=== PATIENT | male | born 1990 | race Caucasian/White ===

== ENCOUNTER 2018-03-25 22:51 | Inpatient (IN) ==
[2018-03-25 23:29] LABS: Basophils # (auto) 0.01 K/uL (0-0.2); Basophils % (auto) 0.1 %; Eosinophils # (auto) 0.02 K/uL (0-0.5); Eosinophils % (auto) 0.2 %; Hematocrit (blood only) 44.5 % (42-52); Hemoglobin 14.9 g/dL (14.0-18.0); Immature Granulocytes # (auto) 0.04 K/uL (0.00-0.02); Immature Granulocytes % (auto) 0.3 %; Lymphocytes # (auto) 3.61 K/uL (1.2-3.4); Lymphocytes % (auto) 27.7 %; Mean Corpuscular Hgb Conc 33.5 g/dL (32-36); Mean Corpuscular Volume 84.1 fL (80-100); Mean Platelet Volume 11.7 fL (7.4-10.4); Monocytes # (auto) 0.82 K/uL (0.11-0.59); Monocytes % (auto) 6.3 %; Neutrophils # (auto) 8.52 K/uL (1.4-6.5); Neutrophils % (auto) 65.4 %; Platelet Count 245 K/uL (130-400); RDW Coefficient of Variation 13.5 % (11.5-14.5); RDW Standard Deviation 41.1 fL (36.4-46.3); Red Blood Count 5.29 M/uL (4.7-6.1); White Blood Count 13.02 K/uL (4.8-10.8)
[2018-03-25 23:51] LABS: Albumin Level 4.4 gm/dl (3.4-5.0); BUN Creatinine Ratio 20.1 (10-20); Calcium 9.3 mg/dl (8.5-10.1); Creatinine Clr Calc Pharmacy 143.3 ml/min; Est GFR (African American) 110.9; Est GFR (Non-African American) 95.7; Potassium 3.6 mmol/L (3.5-5.1)
[2018-03-25 23:54] LABS: Albumin Globulin Ratio 1.4 (0.9-2); Bilirubin,Total 0.4 mg/dl (0.2-1); Globulin 3.2 gm/dl (2.5-4.0); Total Protein 7.6 gm/dl (6.4-8.2)
[2018-03-26 00:17] LABS: Appearance Urine Clear (Clear); Bilirubin Urine Negative (Negative); Color Urine Yellow; Glucose Urine UA Negative (Negative); Ketones Urine Trace (Negative); Leukocyte Esterase Urine Negative (Negative); Nitrite Urine Negative (Negative); Protein Urine Negative (Negative); Specific Gravity Urine 1.028 (1.000-1.030); Urobilinogen Urine Negative (Negative); pH Urine 5.5 (4.5-7.5)
--- NOTE | 2018-03-26 00:43 | Emergency Department Note ---
History of Present Illness General Chief complaint: Back Injury/Pain Stated complaint: back pain, L LEG NUMBNESS Source: patient Mode of arrival: ambulatory Limitations: no limitations History of Present Illness Maximum Pain Intensity: 5 This patient is a 27-year-old male who presents to the emergency department complaining of back pain and left leg pain. The patient reports his pain is been worsening over the past 3-4 weeks. He reports pain in the left lower back which radiates down into the left leg and foot. He reports numbness in the foot and inability to lift his foot. He states his foot has been dragging when he walks and he has to focus on lifting it up in order to walk. He has an appointment with Dr. Durbin in 3 weeks. He has a history of surgery in 2012 for a herniated disc. He saw his primary care provider 3 days ago and was started on a prednisone taper. He denies any injury and states that he woke up with the pain 3-4 weeks ago. He does report he has had some dribbling/ incontinence which started before his back pain. He rates his overall discomfort a 5/10. He states nothing has made his pain better or worse. Home Medications Home Medications Medication Instructions Recorded Confirmed Type dexamethasone 4 mg PO UD 03/25/18 03/25/18 History ibuprofen 400 mg PO QID PRN 03/25/18 03/25/18 History Allergies Allergy/AdvReac Type Severity Reaction Status Date / Time Sulfa (Sulfonamide Allergy Rash Verified 03/25/18 23:52 Antibiotics) Past Med/Surg History Surgical History No significant past medical history back surgery 08/2012 Social History Current Living Situation: Significant Other Other Information That Helps Us Care for You: No Feels Safe at Home: Yes Safety Concerns: Feels Safe At This Time Smoking Status: Never smoker Do You Dip or Chew Tobacco: Yes Second Hand Exposure: No Tobacco Cessation Education Requested by Patient: No Hx Alcohol Use: No Hx Substance Use: No Beliefs That Will Affect Care: None Preferred Language: Burmese Communication Ability: Effective Claim Adjuster Required: No Review of Systems A total of 10 systems reviewed and were otherwise negative Physical Exam Vital Signs Vital Signs - 24 hr 03/25/18 22:54 03/26/18 00:09 03/26/18 02:51 Temperature 36.7 C Temperature Source Oral Sepsis Recent Fever Within 48 Hours No Sepsis New/Unexplained Change in Mental Status No Sepsis Action Taken by Nursing No Action Required Pulse Rate 79 67 Pulse Rate [Finger] 84 Pulse Rhythm Regular Pulse Rhythm [Finger] Pulse Strength Normal Pulse Strength [Finger] Respiratory Rate 18 18 16 Respiratory Effort / Characteristics Non-Labored Spontaneous Non-Labored Spontaneous Respiratory Depth Normal Normal Respiratory Pattern Regular Blood Pressure 156/99 H 145/85 H Blood Pressure [Right Arm] 149/86 H Blood Pressure Mean 118 Blood Pressure Mean [Right Arm] 107 Blood Pressure Position Sitting Blood Pressure Position [Right Arm] Pulse Oximetry 99 100 97 Oxygen Delivery Method Room Air Room Air Room Air 03/26/18 03:05 Temperature 36.5 C Temperature Source Oral Sepsis Recent Fever Within 48 Hours Sepsis New/Unexplained Change in Mental Status Sepsis Action Taken by Nursing Pulse Rate Pulse Rate [Finger] 59 L Pulse Rhythm Pulse Rhythm [Finger] Regular Pulse Strength Pulse Strength [Finger] Normal Respiratory Rate 16 Respiratory Effort / Characteristics Non-Labored Spontaneous Respiratory Depth Normal Respiratory Pattern Regular Blood Pressure Blood Pressure [Right Arm] 144/82 H Blood Pressure Mean Blood Pressure Mean [Right Arm] 102 Blood Pressure Position Blood Pressure Position [Right Arm] Sitting Pulse Oximetry 95 Oxygen Delivery Method Room Air VITALS: Vitals are noted on the nurse's note and reviewed by myself. Vital signs stable. GENERAL: This is a 27-year-old male, in no acute distress, nondiaphoretic, well- developed well-nourished. SKIN: The skin was without rashes. HEAD: Normocephalic atraumatic. MOUTH: Mucous membranes moist. NECK: Supple without nuchal rigidity. HEART: Regular rate and rhythm without murmurs gallops or rubs. LUNGS: Clear to auscultation bilaterally without wheezes, rales or rhonchi. ABDOMEN: Positive bowel sounds x 4. Soft, nontender to palpation. No guarding or rebound tenderness. MUSCULOSKELETAL: There is no tenderness of the lumbar spine or paraspinous muscles. Decreased strength to dorsiflexion of the left foot. Otherwise 5/5 strength in bilateral lower extremities. Patellar reflex slightly decreased in the left lower extremity compared to the right. Negative straight leg raise bilaterally. NEURO: Patient was alert and oriented to person place and time. Distal sensation is intact over bilateral lower extremities. Course Reevaluation(s) Reevaluation #1: The patient was reevaluated and findings and plan were discussed. The patient is agreeable to admission/observation. Consultations Consultation #1: Kim Sohail - [facility] I spoke with Kim Sauceda PA-C with [facility]. Unfortunately, Dr. Durbin is out of town this weekend and will not be able to consult on the patient. She recommended calling Dr. Sherman from [facility] orthopedics. Consultation #2: Dr. Sherman - Ortho spine I spoke with Dr. Sherman regarding the patient. He does feel that the patient will need admission and will evaluate him in the morning. He recommended admitting the patient to the hospitalist service. Consultation #3: Dr. Merry Baca [facility] hospitalist Administered Medications Hydromorphone HCl (Dilaudid) 0.5 mg IV Q3H PRN PRN Reason: Pain Stop: 04/09/18 03:19 Last Admin: 03/26/18 05:35 Dose: 0.5 mg Sodium Chloride (Nss 1000ml) 1,000 mls @ 125 mls/hr IV .Q8H LENIN Stop: 04/25/18 03:19 Last Infusion: 03/26/18 06:15 Dose: 125 mls/hr Admin: 03/26/18 03:56 Dose: 125 mls/hr Dexamethasone Sodium Phosphate (8 mg/ Syringe) 2 mls @ 1 mls/min IV Q6 LENIN Stop: 04/25/18 05:59 Last Admin: 03/26/18 05:35 Dose: 1 mls/min Discontinued Medications Dexamethasone (Decadron) 8 mg IV NOW STA Stop: 03/26/18 01:38 Last Admin: 03/26/18 01:43 Dose: 8 mg Morphine Sulfate (Morphine Sulfate) 4 mg IV NOW STA Stop: 03/26/18 01:38 Last Admin: 03/26/18 01:44 Dose: 4 mg Ondansetron HCl (Zofran) 4 mg IV NOW STA Stop: 03/26/18 01:38 Last Admin: 03/26/18 01:43 Dose: 4 mg Medical Decision Making Differential Diagnosis Differential diagnosis includes cauda equina syndrome, cord compression, disc herniation, muscle spasm, lumbar strain, epidural abscess, malignancy, transverse myelitis, urinary tract infection, colitis, diverticulitis, kidney stone, among others. Medical Records Attestation: I reviewed the patient's medical records. Home Medications Current Medication List: was personally reviewed by me Laboratory Data Attestation: I reviewed the patient's lab results. Result diagrams: 03/25/18 23:20 03/25/18 23:20 Lab Results 03/25/18 03/25/18 03/26/18 Range/Units 23:20 23:20 00:05 WBC 13.02 H (4.8-10.8) K/uL RBC 5.29 (4.7-6.1) M/uL Hgb 14.9 (14.0-18.0) g/dL Hct 44.5 (42-52) % MCV 84.1 (80-100) fL MCH 28.2 (25-34) pg MCHC 33.5 (32-36) g/dL RDW Std Deviation 41.1 (36.4-46.3) fL RDW Coeff of Kelsey 13.5 (11.5-14.5) % Plt Count 245 (130-400) K/uL MPV 11.7 H (7.4-10.4) fL Immature Gran % (Auto) 0.3 % Neut % (Auto) 65.4 % Lymph % (Auto) 27.7 % Spencer % (Auto) 6.3 % Eos % (Auto) 0.2 % Baso % (Auto) 0.1 % Immature Gran # (Auto) 0.04 H (0.00-0.02) K/uL Neut # (Auto) 8.52 H (1.4-6.5) K/uL Lymph # (Auto) 3.61 H (1.2-3.4) K/uL Spencer # (Auto) 0.82 H (0.11-0.59) K/uL Eos # (Auto) 0.02 (0-0.5) K/uL Baso # (Auto) 0.01 (0-0.2) K/uL Sodium 139 (136-145) mmol/L Potassium 3.6 (3.5-5.1) mmol/L Chloride 105 (98-107) mmol/L Carbon Dioxide 26 (21-32) mmol/L Anion Gap 8.0 (3-11) BUN 21 H (7-18) mg/dl Creatinine 1.06 (0.6-1.4) mg/dl Est Cr Clr Drug Dosing 143.3 ml/min Est GFR ( Amer) 110.9 Est GFR (Non-Af Amer) 95.7 BUN/Creatinine Ratio 20.1 H (10-20) Glucose 105 H (70-99) mg/dl Calcium 9.3 (8.5-10.1) mg/dl Total Bilirubin 0.4 (0.2-1) mg/dl AST 20 (15-37) U/L ALT 54 (12-78) U/L Alkaline Phosphatase 90 (45-117) U/L Total Protein 7.6 (6.4-8.2) gm/dl Albumin 4.4 (3.4-5.0) gm/dl Globulin 3.2 (2.5-4.0) gm/dl Albumin/Globulin Ratio 1.4 (0.9-2) Urine Color Yellow Urine Appearance Clear (Clear) Urine pH 5.5 (4.5-7.5) Ur Specific [place] 1.028 (1.000-1.030) Urine Protein Negative (Negative) Urine Glucose (UA) Negative (Negative) Urine Ketones Trace H (Negative) Urine Blood Negative (Negative) Urine Nitrite Negative (Negative) Urine Bilirubin Negative (Negative) Urine Urobilinogen Negative (Negative) Ur Leukocyte Esterase Negative (Negative) Imaging Data Attestation: I personally reviewed and interpreted this imaging study as follows : Radiologist's Impression: MRI L SPINE : History: None Findings: There is lumbar disc disease with broad-based disc bulge at L1-2 no evidence for significant canal effacement with no evidence of neuroforaminal effacement Broad-based disc bulge at L2-3 with a right foraminal zone disc protrusion causing effacement of the lateral recess on the right with mild canal effacement potential for impingement of the descending L3 nerve root cannot be excluded. There is central disc herniation at L3-4 with extrusion of disc material over the superior endplate of L4. This causes effacement of the thecal sac with the canal diameter reduced to 7 mm. Mild bilateral lateral recess effacement At L4-L5 there is broad-based disc bulge with minimal canal effacement no significant neural foraminal effacement Disc herniation at L5-S1 with extrusion of disc material posterior to the L5 vertebral body this is predominantly intra-articular and intraforaminal with severe effacement of the right lateral recess with possible impingement on the descending S1 nerve root on the right Impression: significant degenerative disc disease throughout the lumbar spine with disc herniation at L5-S1 L3-4 and L2-3. Likely impinge on descending nerve roots at L2-3 on the right and at L5-S1 on the right with canal effacement proximal 7 mm residual canal diameter at L3-4: Radiologist: Joe Cordero MD Blood Pressure Blood Pressure Findings: Elevated blood pressure Blood Pressure Disposition: further management by hospitalist MDM Narrative The patient is a 27-year-old male who presents today complaining of back pain, foot drop and urinary incontinence. Labs revealed a mild leukocytosis, likely secondary to recent steroid use. Urinalysis was not suggestive of infection. MRI was performed and does show significant disc bulge consistent with patient' s symptoms. Given his physical exam findings, I am concerned that the patient may need surgical intervention. Orthopedic spine was consulted and recommended admitting the patient for consultation in the morning. [facility]. He did receive an initial dose of 8 mg Decadron IV at the recommendation of orthopedics. He also did receive a small dose of morphine for pain. Impression & Plan Lumbar disc herniation Discharge Plan Visit Data *Final* Discharge Date/Time: 03/26/18 02:51 Chief Complaint: Back Injury/Pain Stated Complaint: back pain, L LEG NUMBNESS ED Provider: Julio Taylor ED Midlevel Provider: Vernell Lorenzo Discharge Problem: Lumbar disc herniation Patient Disposition: Admitted As Inpatient Condition: Good Discharge Instructions Interventions: ED Discharge Assessment Last Done: 03/26/18 02:51
[2018-03-26] MEDS ORDERED: DEXAMETHASONE SOD INJ 4 MG/ML VIAL IV STA (01:37)
[2018-03-26] MEDS ORDERED: MoRPHine SULFATE 4 MG/ML 1 ML CARP\\VIAL IV STA (01:37)
[2018-03-26] MEDS ORDERED: ONDANSETRON INJ 2 MG/ML 2 ML VIAL IV STA (01:37)
[2018-03-26] MEDS ORDERED: ONDANSETRON INJ 2 MG/ML 2 ML VIAL IV PRN (03:20)
[2018-03-26] MEDS ORDERED: ACETAMINOPHEN 325 MG TAB PO PRN (03:20)
[2018-03-26] MEDS: SODIUM CHLORIDE 0.9% 1000ML 1,000 ML IV SCH ×3 (03:56→18:26)
[2018-03-26] MEDS: DEXAMETHASONE SOD PHOSPHATE 8 MG in SYRINGE 0 ML IV SCH ×4 (05:35→23:36)
[2018-03-26] MEDS: HYDROmorphone INJ 0.5 MG/0.5 ML SYR IV PRN (05:35)
--- NOTE | 2018-03-26 05:38 | History and Physical Report ---
DATE OF ADMISSION: 03/26/2018 CHIEF COMPLAINT: Severe back pain. HISTORY OF PRESENT ILLNESS: A 27-year-old male with past medical history significant for herniated disc, status post back surgery in 2012, presents with ongoing severe back pain since the last 2-3 weeks. Initially started as a backache. He saw his family doctor who placed him on a steroid taper. He also on and off had incontinence of urine, but it got better a couple of days ago, but today again, he has developed incontinence. Also, over the last 1-2 days, he is having weakness in his left lower extremity , has to drag his left leg. MRI done in the ER unofficial report as per ER has a herniated disc at L2-S1. The patient has an appointment with Dr. Durbin in the end of this month, but he is out of town right now, and the ER contacted Dr. Sherman and Dr. Sherman has agreed to see the patient in the morning and advised to put him on IV Decadron 8 mg q.6 h. Currently, patient is resting comfortably and hemodynamically stable. Denies any headache, no blurred vision, no earache, no runny nose, no sore throat, no cough, no fever, no chills, no nausea, no vomiting, no abdominal pain. Normal bowel and bladder movements otherwise. No swelling in the legs. ALLERGIES: SULFA ANTIBIOTICS. PAST MEDICAL HISTORY: None. PAST SURGICAL HISTORY: Back surgery. MEDICATIONS: [id number] ibuprofen and steroid taper. FAMILY HISTORY: Patient denies any significant family history. SOCIAL HISTORY: Patient smoked occasionally 8 years ago but quit since 8 years. Denies any alcohol abuse. REVIEW OF SYSTEMS: As per HPI. Rest of the review of symptoms negative. PHYSICAL EXAMINATION: GENERAL: Patient is of moderate built, not in acute distress. VITAL SIGNS: Temperature 36.7, pulse 84, respiratory rate 18, blood pressure 149/86, oxygen saturation 98% on room air. HEENT: No pallor, no icterus. Pupils equal, round, and reactive to light. NECK: No JVD, no neck mass, no carotid bruit. CARDIOVASCULAR SYSTEM: S1 and S2 heard, regular rate and rhythm, no murmur, no gallop. RESPIRATORY SYSTEM: Clear to auscultation bilaterally. No wheezing, no crackles. GASTROINTESTINAL: Abdomen is soft, bowel sounds present, nontender, no distention. CENTRAL NERVOUS SYSTEM: Cranial nerves II through XII grossly intact. EXTREMITIES: No swelling of right or left lower extremity, mild weakness of left lower extremity. MUSCULOSKELETAL: No spinal tenderness. LABORATORY DATA: WBC 13, hemoglobin 14.9, hematocrit 44.5, platelets 245. Sodium 139, potassium 3.6, chloride 105, bicarbonate 26, BUN 21, creatinine 1.06, serum glucose 105, calcium 9.3, total bilirubin 0.4, AST 20, ALT 54, alkaline phosphatase 90. Urinalysis: Trace ketones. IMAGING: Lumbar spine MRI official reading pending. ASSESSMENT AND PLAN: This is a 27-year-old male who presents with severe back pain and found to be herniated disk from L2-S1. 1. Severe back pain with some weakness in left lower extremity and incontinence , was going on for 1-2 days, had a back surgery for herniated disk in 2012. ER notified Orthopedics, started on IV Decadron 8 mg q.6 h., IV Dilaudid p.r.n., IV fluids, n.p.o. Orthopedics is going to evaluate the patient in the a.m. Will follow EKG and CXR for pre op. 2. Deep venous thrombosis prophylaxis. Sequential compression devices for now. 3. Disposition: Admit to medical floor. Expect to discharge home and follow with his family doctor. Level 1 full code. We will also do the chest x-ray and EKG for preop. MTDD
[2018-03-26] MEDS ORDERED: DEXAMETHASONE SOD INJ 4 MG/ML VIAL IV SCH (06:00)
--- NOTE | 2018-03-26 06:55 | Magnetic Resonance Report ---
ADDENDUM There is a large posterior central disc extrusion with a possible sequestered fragment at the L3-L4. This was previously underestimated on the prior study. The disc extrusion/fragmented measures approxi mately 16 x 14 x 6 mm in size and results in severe central canal narrowing with compression of the t ransiting nerve roots/cauda equina. The central canal measures a diameter of 3.9 mm. Electronically signed by: Harpreet Ray M.D. 03/29/2018 11:56 AM ORIGINAL REPORT MR lumbar spine wo con CLINICAL HISTORY: Back pain with left leg radiculopathy. Left leg numbness and foot drop. History of prior back surgery. TECHNIQUE: Sagittal and axial T1, T2 and STIR images were obtained. COMPARISON STUDY: Intraoperative radiograph dated 08/24/2012 OBSERVATIONS: The vertebral bodies and posterior elements appear intact. There is no abnormal bony signal present t o suggest a marrow replacement process. L1-2: There is a circumferential disc bulge and mild spinal canal narrowing. L2-3: There is a small broad-based disc protrusion asymmetric to the right. There is mild spinal sten osis. There is no significant foraminal narrowing. L3-4: There is a moderate central disc extrusion with secondary deformity of the anterior thecal sac. There is moderate spinal canal narrowing. There is no significant foraminal stenosis L4-5: There is no significant disc bulge or focal herniation. There is no spinal or foraminal stenosi s. There is a interspinous spacer. L5-S1: There is a small to moderate right paracentral disc protrusion with mild secondary deformity o f the thecal sac. There is no significant foraminal narrowing. The conus medullaris and cauda equina appear normal. IMPRESSION: 1. Advanced multilevel spondylitic changes 2. Right paracentral disc protrusion at the L2-3 level with secondary spinal canal narrowing 3. Moderate central disc extrusion at the L3-4 level with moderate spinal canal narrowing 4. Postsurgical changes at the L4-5 level 5. Small moderate right paracentral disc protrusion at the L5-S1 level. Electronically signed by: Herbert Valadez M.D. 03/26/2018 6:54 AM
--- NOTE | 2018-03-26 07:20 | XRay Report ---
XR chest 1V portable CLINICAL HISTORY: Preoperative chest COMPARISON STUDY: 08/12/2012 FINDINGS: The cardiac and mediastinal contours are normal. There is no evidence of focal pulmonary co nsolidation. There is no evidence of failure. No pleural effusions are visualized.[ IMPRESSION: No active disease in the chest. Electronically signed by: Herbert Valadez M.D. 03/26/2018 7:18 AM
[2018-03-26] MEDS: KETOROLAC TROMETHAMINE 10 MG TABLET PO SCH ×3 (10:30→21:42)
--- NOTE | 2018-03-26 13:30 | Consultation Report ---
DATE OF CONSULTATION: 03/26/2018 CHIEF COMPLAINT: Back pain and leg pain, weakness. HISTORY OF PRESENT ILLNESS: Rico is pleasant. He is 27. He is a nice young fellow who is working. He got to the point last evening where he just could not work any longer with associated lower extremity weakness and a fall where his left foot will drop. He came to the Emergency Room appropriately. He consulted the team of Dr. Durbin, fortunately Dr. Durbin was out of town for a few days, so I was able to take the call and admit the patient to the medical service with me to consulting. It was an appropriate admission. He presents this morning when I see him about 8:00 that he is comfortable, the only issue his left foot is weak in dorsiflexion primarily. PAST MEDICAL HISTORY: Negative for hypertension, COPD. He was obese and of interest the fact that he lost 160 pounds. He was almost 400 pounds. PAST SURGICAL HISTORY: Lumbar spine surgery several years ago. MEDICATIONS: [id number] ibuprofen. FAMILY HISTORY: Negative. Occasional smoker, no alcohol use. SOCIAL HISTORY: He is a worker and enjoys work. He wants to continue working as much as possible. REVIEW OF SYSTEMS: Denies any blurred vision, double vision, tinnitus or vertigo. Denies chest pain, palpitations. Denies nausea, vomiting, incontinence. OBJECTIVE: GENERAL: He is alert, oriented. HEENT: Pupils react to light and accommodation. Ear, nose, throat: Clear. CARDIAC: Normal S1, S2. LUNGS: Clear. ABDOMEN: Soft, nontender. NEUROLOGIC: He has mild pain with straight leg raising on the left, negative on the right. Negative hip examination bilaterally. He does have true weakness of dorsiflexion of his lesser toes and great toe on the left hand side. He has good push off strength. He has good quad strength. He has no reflex changes. ASSESSMENT: His images reviewed in detail. He has some back pain. He has a herniated disc. He has some other issues at multiple levels of lumbar spine. The 3-4 level radiographically looks the worst. Of interest is the fact that I do not have a direct correlation of his radiographic findings to his physical examination and that he is weak on the left hand side easily consistent with the 5-nerve root, possibly 4, but his dominant pathology is right-sided, so it is a little confusing. PLAN: At this point in time, there is no urgent surgery. He did all things being considered. We are going to medicate him and thank to the medical team. I am going to add Toradol and Neurontin, and I anticipate him getting out of the hospital about 24 hours.
--- NOTE | 2018-03-26 13:46 | Hospitalist Progress Note ---
Date of Service March 26, 2018 Assessment & Plan (1) Lumbar disc herniation: History of lumbar spinal surgery in 2013 for herniated disc Admitted with back pain and weakness involving left ankle MRI did show HNP involving L2-S1 with the various degrees of progression Appreciate input and recommendation by Dr. Kim (2) Lumbar back pain with radiculopathy affecting left lower extremity: The radiculopathy symptoms have been going on for the last 2 days Clinically has significant L5 radiculopathy with impaired dorsiflexion of left ankle Has been on intravenous Decadron Denies any bladder and/or bowel problem Likely to need acute surgical intervention if steroid does not help Likely to see Dr. Durbin as an outpatient for ongoing management Subjective 27-year-old male with history of lumbar surgery for disc herniation in the past was admitted with weakness and left foot and noted to have disc protrusion involving L2 to to S1 distribution on MRI. 03/26 The back pain is controlled He cannot dorsiflex the left ankle He does have inferior sensation in left foot and toes Denies any bowel and/or bladder problem Physical Exam 2 Vital Signs (Past 24 Hours): Last Vital Signs Temp 36.6 C 03/26/18 07:28 Pulse 62 03/26/18 07:28 Resp 18 03/26/18 07:28 BP 109/65 03/26/18 07:28 Pulse Ox 97 03/26/18 07:28 Physical Exam: Lying in bed comfortably Constitutional: WD/WN, vitals as above Eyes: PERRL, conjunctivae normal, anicteric sclerae ENMT: external ear and nose normal, oropharynx normal Respiratory: normal respiratory effort, lungs clear to auscultation Cardiovascular: Rate/Rhythm: regular rate and regular rhythm Heart Sounds: normal S1 and normal S2 Gastrointestinal (Abdomen): Inspection/Auscultation: abdomen normal to inspection and normal bowel sounds Neurologic: Impaired sensation in the left toes and difficulty with ambulation due to weakness in left ankle Results & Data Laboratory Results Short CBC 03/25/18 Range/Units 23:20 WBC 13.02 H (4.8-10.8) K/uL Hgb 14.9 (14.0-18.0) g/dL Hct 44.5 (42-52) % Plt Count 245 (130-400) K/uL BMP 03/25/18 23:20 Sodium 139 Potassium 3.6 Chloride 105 Carbon Dioxide 26 BUN 21 H Creatinine 1.06 Glucose 105 H Calcium 9.3 Liver Function 03/25/18 Range/Units 23:20 Total Bilirubin 0.4 (0.2-1) mg/dl AST 20 (15-37) U/L ALT 54 (12-78) U/L Alkaline Phosphatase 90 (45-117) U/L Albumin 4.4 (3.4-5.0) gm/dl Urine 03/26/18 Range/Units 00:05 Urine Color Yellow Urine Appearance Clear (Clear) Urine pH 5.5 (4.5-7.5) Ur Specific [place] 1.028 (1.000-1.030) Urine Protein Negative (Negative) Urine Glucose (UA) Negative (Negative) Medications Administered Current Inpatient Medications Acetaminophen (Tylenol) 650 mg PO Q4H PRN PRN Reason: pain/fever Stop: 04/25/18 03:19 Gabapentin (Neurontin) 300 mg PO BID [facility] Stop: 04/25/18 20:59 Hydromorphone HCl (Dilaudid) 0.5 mg IV Q3H PRN PRN Reason: Pain Stop: 04/09/18 03:19 Last Admin: 03/26/18 05:35 Dose: 0.5 mg Sodium Chloride (Nss 1000ml) 1,000 mls @ 125 mls/hr IV .Q8H LENIN Stop: 04/25/18 03:19 Last Admin: 03/26/18 10:31 Dose: 125 mls/hr Dexamethasone Sodium Phosphate (8 mg/ Syringe) 2 mls @ 1 mls/min IV Q6 [facility] Stop: 04/25/18 05:59 Last Admin: 03/26/18 12:34 Dose: 1 mls/min Ketorolac Tromethamine (Toradol) 10 mg PO Q8 LENIN Stop: 04/25/18 09:59 Last Admin: 03/26/18 10:30 Dose: 10 mg Ondansetron HCl (Zofran) 4 mg IV Q6H PRN PRN Reason: Nausea Stop: 04/25/18 03:19
[2018-03-26] MEDS: GABAPENTIN 300 MG CAP PO SCH (20:35)
[2018-03-27] MEDS: SODIUM CHLORIDE 0.9% 1000ML 1,000 ML IV SCH ×4 (01:28→23:56)
[2018-03-27] MEDS: KETOROLAC TROMETHAMINE 10 MG TABLET PO SCH ×3 (05:28→21:36)
[2018-03-27] MEDS: DEXAMETHASONE SOD PHOSPHATE 8 MG in SYRINGE 0 ML IV SCH ×4 (05:28→23:56)
[2018-03-27] MEDS: GABAPENTIN 300 MG CAP PO SCH ×2 (09:21→20:36)
--- NOTE | 2018-03-27 14:46 | Progress Note ---
DATE: 03/27/2018 He is alert, oriented, pain controlled today, minimal discomfort. Still weak in his left foot. No fevers, sweats, chills. No bowel or bladder issues. He does ambulate. He does take p.o. IMAGING: Images reviewed. He has some stenosis of multiple levels of herniated disk at 3-4. Interestingly and I comment to the patient, his dominant neurological pathology radiographically is in the right hand side, but his symptoms are more left hand side. He does have a small herniation stenosis at L4-L5 on the left, which could correlate with his symptoms. PLAN: At this point, I think it is safe for him to go home today, which is Wednesday, follow with Dr. Durbin in the office. I will try to touch base with Dr. Durbin later today or tomorrow.
--- NOTE | 2018-03-27 14:49 | Hospitalist Progress Note ---
Date of Service March 27, 2018 Assessment & Plan (1) Lumbar disc herniation: History of lumbar spinal surgery in 2013 for herniated disc Admitted with back pain and weakness involving left ankle MRI did show HNP involving L2-S1 with the various degrees of progression Appreciate input and recommendation by Dr. Kim Condition did not get any better Complaining of left foot drop with the impaired sensation involving the left foot and left toes Worried about having further damage if goes home today (2) Lumbar back pain with radiculopathy affecting left lower extremity: The radiculopathy symptoms have been going on for the last 2 days Clinically has significant L5 radiculopathy with impaired dorsiflexion of left ankle Has been on intravenous Decadron Denies any bladder and/or bowel problem Likely to need acute surgical intervention if steroid does not help Likely to see Dr. Durbin as an outpatient for ongoing management Continue current medications for pain control Will be seen by Dr. Durbin tomorrow Subjective 27-year-old male with history of lumbar surgery for disc herniation in the past was admitted with weakness and left foot and noted to have disc protrusion involving L2 to to S1 distribution on MRI. 1 The back pain is controlled He cannot dorsiflex the left ankle He does have inferior sensation in left foot and toes Denies any bowel and/or bladder problem 03/27 The patient was seen and examined today in the medical floor He has been complaining of RI sensation in the left foot and left toes His left ankle dorsiflexion and dorsiflexion of the toes have not improved at all He is afraid that the condition might gets worse before anything could be done to improve He will stay tonight to see Dr. Durbin tomorrow Physical Exam 2 Vital Signs (Past 24 Hours): Last Vital Signs Temp 36.6 C 03/27/18 07:26 Pulse 52 L 03/27/18 07:26 Resp 12 03/27/18 07:26 BP 107/67 03/27/18 07:26 Pulse Ox 97 03/27/18 07:26 Constitutional: WD/WN, vitals as above Eyes: PERRL, conjunctivae normal, anicteric sclerae ENMT: external ear and nose normal, oropharynx normal Respiratory: normal respiratory effort, lungs clear to auscultation Cardiovascular: Rate/Rhythm: regular rate and regular rhythm Heart Sounds: normal S1 and normal S2 Gastrointestinal (Abdomen): Inspection/Auscultation: abdomen normal to inspection and normal bowel sounds Results & Data Medications Administered Current Inpatient Medications Acetaminophen (Tylenol) 650 mg PO Q4H PRN PRN Reason: pain/fever Stop: 04/25/18 03:19 Gabapentin (Neurontin) 300 mg PO BID [facility]EN[facility] Stop: 04/25/18 20:59 Last Admin: 03/27/18 09:21 Dose: 300 mg Hydromorphone HCl (Dilaudid) 0.5 mg IV Q3H PRN PRN Reason: Pain Stop: 04/09/18 03:19 Last Admin: 03/26/18 05:35 Dose: 0.5 mg Sodium Chloride (Nss 1000ml) 1,000 mls @ 125 mls/hr IV .Q8H LENIN Stop: 04/25/18 03:19 Last Admin: 03/27/18 09:22 Dose: 125 mls/hr Dexamethasone Sodium Phosphate (8 mg/ Syringe) 2 mls @ 1 mls/min IV Q6 LENIN Stop: 04/25/18 05:59 Last Admin: 03/27/18 11:37 Dose: 1 mls/min Ketorolac Tromethamine (Toradol) 10 mg PO Q8 LENIN Stop: 04/25/18 09:59 Last Admin: 03/27/18 14:52 Dose: 10 mg Ondansetron HCl (Zofran) 4 mg IV Q6H PRN PRN Reason: Nausea Stop: 04/25/18 03:19
[2018-03-28] MEDS: KETOROLAC TROMETHAMINE 10 MG TABLET PO SCH ×3 (05:05→21:51)
[2018-03-28] MEDS: DEXAMETHASONE SOD PHOSPHATE 8 MG in SYRINGE 0 ML IV SCH ×4 (05:05→23:35)
[2018-03-28] MEDS: SODIUM CHLORIDE 0.9% 1000ML 1,000 ML IV SCH ×2 (07:16→23:35)
[2018-03-28] MEDS: GABAPENTIN 300 MG CAP PO SCH ×2 (08:39→20:33)
--- NOTE | 2018-03-28 12:30 | Orthopedic Consultation ---
Date of Consultation March 28, 2018 Assessment & Plan (1) Lumbar disc herniation: At this time the patient still has significant strength deficits and weakness. He would like to consider surgical intervention. It would require lumbar decompression at the 3 4 level. Would require a midline approach in order to address the massive central disc herniation at the 3 4 level. 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 Risk benefits pros cons and alternatives were outlined in detail. Risks include but not limited to anesthesia blindness stroke paralysis nerve damage blood loss current transfusion infection requiring reoperation. Benefits of the being marked improvement of his radiculopathy and with time improvement of his strength deficits. This time he will be made n.p.o. and plan for surgery tomorrow. Present on Admission?: Yes History of Present Illness Reason for Consultation: Back left leg pain and weakness Attending Physician: Ted Peñaloza MD History of Present Illness Is a very pleasant 27-year-old male well-known to me. He is undergone a previous decompression Coflex implant approximately 5 years ago by myself. He presents to hospital Wednesday with worsening back and left leg pain with significant weakness in the dorsiflexion. He is very uncomfortable. He required hospitalization IV medication and IV steroids. This morning upon my exam he still notes significant weakness to left dorsiflexion. He states he is relatively comfortable while lying supine but has difficulty with ambulation. He notices some urinary retention and difficulty with steady stream urination. Allergies Allergy/AdvReac Type Severity Reaction Status Date / Time Sulfa (Sulfonamide Allergy Rash Verified 03/25/18 23:52 Antibiotics) Home Medications Home Medications Medication Instructions Recorded Confirmed Type dexamethasone 4 mg PO UD 03/25/18 03/25/18 History ibuprofen 400 mg PO QID PRN 03/25/18 03/25/18 History Patient History Surgical History No significant past medical history back surgery 08/2012 Social History Current Living Situation: Significant Other Other Information That Helps Us Care for You: No Feels Safe at Home: Yes Safety Concerns: Feels Safe At This Time Smoking Status: Never smoker Do You Dip or Chew Tobacco: Yes Second Hand Exposure: No Tobacco Cessation Education Requested by Patient: No Hx Alcohol Use: No Hx Substance Use: No Beliefs That Will Affect Care: None Preferred Language: Mauritanian Communication Ability: Effective Professor Of Biology Required: No Physical Exam 2 Vital Signs (Past 24 Hours): Last Vital Signs Temp 36.6 C 03/28/18 08:03 Pulse 65 03/28/18 08:03 Resp 16 03/28/18 08:03 BP 138/87 03/28/18 08:03 Pulse Ox 98 03/28/18 08:03 Physical Exam: On physical exam he has significant weakness to left dorsiflexion and extensor hallucis longus at a 0/5 with a 5/5 on the right. He is 5/5 bilateral plantar flexion and quadriceps. Sensory appears to be diminished on the left compared to the right. Is negative logroll. He is markedly positive tension signs with straight leg raising on the right with a positive Lasegue's maneuver. I did have the patient stand and ambulate about the room. He is a well-healed midline lumbar incision from previous surgery. He has the onset of immediate radiculopathy after just a few steps.
--- NOTE | 2018-03-28 16:25 | Hospitalist Progress Note ---
Date of Service March 28, 2018 Assessment & Plan (1) Lumbar disc herniation: History of lumbar spinal surgery in 2013 for herniated disc Admitted with back pain and weakness involving left ankle MRI did show HNP involving L2-S1 with the various degrees of progression Appreciate input and recommendation by Dr. Kim Condition did not get any better Complaining of left foot drop with the impaired sensation involving the left foot and left toes Worried about having further damage if goes home today Appreciate Dr. Durbin's input (2) Lumbar back pain with radiculopathy affecting left lower extremity: and recommendationThe radiculopathy symptoms have been going on for the last 2 days Clinically has significant L5 radiculopathy with impaired dorsiflexion of left ankle Has been on intravenous Decadron Denies any bladder and/or bowel problem Likely to need acute surgical intervention if steroid does not help Likely to see Dr. Durbin as an outpatient for ongoing management Continue current medications for pain control Will be seen by Dr. Durbin tomorrow Management as per Dr. Durbin Likely to have surgery soon Subjective 27-year-old male with history of lumbar surgery for disc herniation in the past was admitted with weakness and left foot and noted to have disc protrusion involving L2 to to S1 distribution on MRI. 03/26 The back pain is controlled He cannot dorsiflex the left ankle He does have inferior sensation in left foot and toes Denies any bowel and/or bladder problem 03/27 The patient was seen and examined today in the medical floor He has been complaining of CT sensation in the left foot and left toes His left ankle dorsiflexion and dorsiflexion of the toes have not improved at all He is afraid that the condition might gets worse before anything could be done to improve He will stay tonight to see Dr. Durbin tomorrow 03/28 The patient was seen and examined in medical floor Her back pain is controlled but left ankle weakness persist Denies any other symptoms Physical Exam 2 Vital Signs (Past 24 Hours): Last Vital Signs Temp 36.6 C 03/28/18 15:24 Pulse 70 03/28/18 15:24 Resp 19 03/28/18 15:24 BP 131/78 03/28/18 15:24 Pulse Ox 97 03/28/18 15:24 Constitutional: WD/WN, vitals as above Eyes: PERRL, conjunctivae normal, anicteric sclerae ENMT: external ear and nose normal, oropharynx normal Respiratory: normal respiratory effort, lungs clear to auscultation Cardiovascular: Rate/Rhythm: regular rate and regular rhythm Heart Sounds: normal S1 and normal S2 Gastrointestinal (Abdomen): Inspection/Auscultation: abdomen normal to inspection and normal bowel sounds Musculoskeletal: Very weak dorsiflexion of the left ankle and also the left toes Neurologic: Alert, awake and oriented x3. Has L5 radiculopathy with absent dorsiflexion of left foot Results & Data Medications Administered Current Inpatient Medications Acetaminophen (Tylenol) 650 mg PO Q4H PRN PRN Reason: pain/fever Stop: 04/25/18 03:19 Gabapentin (Neurontin) 300 mg PO BID [facility] Stop: 04/25/18 20:59 Last Admin: 03/28/18 08:39 Dose: 300 mg Hydromorphone HCl (Dilaudid) 0.5 mg IV Q3H PRN PRN Reason: Pain Stop: 04/09/18 03:19 Last Admin: 03/26/18 05:35 Dose: 0.5 mg Dexamethasone Sodium Phosphate (8 mg/ Syringe) 2 mls @ 1 mls/min IV Q6 LENIN Stop: 04/25/18 05:59 Last Admin: 03/28/18 11:20 Dose: 1 mls/min Sodium Chloride (Nss 1000ml) 1,000 mls @ 80 mls/hr IV .[id number] LENIN Stop: 04/28/18 00:00 Ketorolac Tromethamine (Toradol) 10 mg PO Q8 LENIN Stop: 04/25/18 09:59 Last Admin: 03/28/18 13:53 Dose: 10 mg Ondansetron HCl (Zofran) 4 mg IV Q6H PRN PRN Reason: Nausea Stop: 04/25/18 03:19
--- NOTE | 2018-03-28 16:45 | Anesthesiology Consultation ---
Date of Service March 28, 2018 Assessment & Plan (1) Encounter for pre-operative examination: Chart Review Chart Review: Acceptable Risk for Surgery and Patient NOT seen in Pre Admission Testing Consults Requested none NPO Date Last Intake of Fluids: 03/26/18 Time Last Intake of Fluids: 00:00 Date Last Intake of Solids: 03/26/18 Time Last Intake of Solids: 00:00 History Surgery Operation Date: 03/29/18 10:55 Proposed Procedures p L3-L4 Lumbar Decompression Michel - Piter Durbin DO Height/Weight Height: 6 ft 4 in Weight: 107.6 kg Allergies Allergy/AdvReac Type Severity Reaction Status Date / Time Sulfa (Sulfonamide Allergy Rash Verified 03/25/18 23:52 Antibiotics) Medications Home Medications Medication Instructions Recorded Confirmed Last Taken dexamethasone 4 mg PO UD 03/25/18 03/25/18 03/25/18 ibuprofen 400 mg PO QID PRN 03/25/18 03/25/18 03/25/18 Active Medications Generic Name Dose Route Start Last Admin Trade Name Freq PRN Reason Stop Dose Admin Gabapentin 300 mg 03/26/18 21:00 03/28/18 08:39 Neurontin PO 04/25/18 20:59 300 mg BID LENIN Administration Hydromorphone HCl 0.5 mg 03/26/18 03:20 03/26/18 05:35 Dilaudid IV 04/09/18 03:19 0.5 mg Q3H PRN Administration Pain Dexamethasone Sodium Phosphate 2 mls @ 1 mls/min 03/26/18 06:00 03/28/18 11: 20 8 mg/ Syringe IV 04/25/18 05:59 1 mls/min Q6 LENIN Administration Ketorolac Tromethamine 10 mg 03/26/18 10:00 03/28/18 13:53 Toradol PO 04/25/18 09:59 10 mg Q8 LENIN Administration Beta Cassy Beta Cassy Taken Within 24 Hours: No Past Medical History Medical History Herniated disc s/p surgery 2012. Now with worsening back pain x 2-3 weeks. Past Surgical History Surgical History No significant past medical history back surgery 08/2012 Hx of decompressive lumbar laminectomy L4-L5. 2013. GETA. NO issues. Past Anesthesia History No Hx of Anesthesia Complications and No Family Hx of Anesthesia Complications History of PONV No Motion Sickness Screening History of Motion Sickness: No Social History Smoking Status: Never smoker Do You Dip or Chew Tobacco: Yes Hx Alcohol Use: No Hx Substance Use: No substance use type: does not use Physical Exam Vital Signs Last Vital Signs Temp 36.6 C 03/28/18 15:24 Pulse 70 03/28/18 15:24 Resp 19 03/28/18 15:24 BP 131/78 03/28/18 15:24 Pulse Ox 97 03/28/18 15:24 Testing Electrocardiogram Date: 03/26/18 Normal sinus rhythm Normal ECG When compared with ECG of 12-AUG-2012 09:03, No significant change was found Confirmed by HORACIO KERR ([id number]) on 03/27/2018 12:27:05 PM Chest X-Ray Date: 03/26/18 FINDINGS: The cardiac and mediastinal contours are normal. There is no evidence of focal pulmonary consolidation. There is no evidence of failure. No pleural effusions are visualized.[ IMPRESSION: No active disease in the chest. Laboratory Results 03/25/18 23:20 03/25/18 23:20 Urine Color Yellow 03/26/18 00:05 Urine Appearance Clear (Clear) 03/26/18 00:05 Urine pH 5.5 (4.5-7.5) 03/26/18 00:05 Ur Specific Noble 1.028 (1.000-1.030) 03/26/18 00:05 Urine Protein Negative (Negative) 03/26/18 00:05 Urine Glucose (UA) Negative (Negative) 03/26/18 00:05 Urine Ketones Trace (Negative) H 03/26/18 00:05 Urine Nitrite Negative (Negative) 03/26/18 00:05 Ur Leukocyte Esterase Negative (Negative) 03/26/18 00:05
[2018-03-29] MEDS: DEXAMETHASONE SOD PHOSPHATE 8 MG in SYRINGE 0 ML IV SCH ×3 (05:20→21:51)
[2018-03-29] MEDS: KETOROLAC TROMETHAMINE 10 MG TABLET PO SCH (05:42)
[2018-03-29] MEDS: GABAPENTIN 300 MG CAP PO SCH ×2 (09:23→21:51)
[2018-03-29] MEDS: SODIUM CHLORIDE 0.9% 1000ML 1,000 ML IV SCH (11:10)
--- NOTE | 2018-03-29 12:42 | Orthopedic Progress Note ---
Date of Service March 29, 2018 Subjective Patient still has significant left leg pain and weakness. He has been denied surgical procedure. We are undergoing the process of appealing this decision from his insurance company. Physical Exam 2 Vital Signs (Past 24 Hours): Last Vital Signs Temp 36.7 C 03/29/18 08:18 Pulse 66 03/29/18 08:18 Resp 18 03/29/18 08:18 BP 133/74 03/29/18 08:18 Pulse Ox 96 03/29/18 08:18
[2018-03-29] MEDS: HYDROmorphone INJ 0.5 MG/0.5 ML SYR IV PRN ×2 (14:09→19:53)
--- NOTE | 2018-03-29 15:15 | Hospitalist Progress Note ---
Date of Service March 29, 2018 Assessment & Plan (1) Lumbar disc herniation: History of lumbar spinal surgery in 2013 for herniated disc Admitted with back pain and weakness involving left ankle MRI did show HNP involving L2-S1 with the various degrees of progression Appreciate input and recommendation by Dr. Kim Condition did not get any better Complaining of left foot drop with the impaired sensation involving the left foot and left toes Worried about having further damage if goes home today Appreciate Dr. Durbin's input Left foot drop is not any better (2) Lumbar back pain with radiculopathy affecting left lower extremity: and recommendationThe radiculopathy symptoms have been going on for the last 2 days Clinically has significant L5 radiculopathy with impaired dorsiflexion of left ankle Has been on intravenous Decadron Denies any bladder and/or bowel problem Likely to need acute surgical intervention if steroid does not help Likely to see Dr. Durbin as an outpatient for ongoing management Continue current medications for pain control Will be seen by Dr. Durbin tomorrow Management as per Dr. Durbin Likely to have surgery lumbar decompression and fusion today Subjective 27-year-old male with history of lumbar surgery for disc herniation in the past was admitted with weakness and left foot and noted to have disc protrusion involving L2 to to S1 distribution on MRI. 03/26 The back pain is controlled He cannot dorsiflex the left ankle He does have inferior sensation in left foot and toes Denies any bowel and/or bladder problem 03/27 The patient was seen and examined today in the medical floor He has been complaining of DE sensation in the left foot and left toes His left ankle dorsiflexion and dorsiflexion of the toes have not improved at all He is afraid that the condition might gets worse before anything could be done to improve He will stay tonight to see Dr. Durbin tomorrow 03/28 The patient was seen and examined in medical floor Her back pain is controlled but left ankle weakness persist Denies any other symptoms 03/29 No more back pain but left foot drop persist He is going to have surgery for lumbar decompression fusion today Physical Exam 2 Vital Signs (Past 24 Hours): Last Vital Signs Temp 36.7 C 03/29/18 08:18 Pulse 66 03/29/18 08:18 Resp 18 03/29/18 08:18 BP 133/74 03/29/18 08:18 Pulse Ox 96 03/29/18 08:18 Constitutional: WD/WN, vitals as above Eyes: PERRL, conjunctivae normal, anicteric sclerae ENMT: external ear and nose normal, oropharynx normal Respiratory: normal respiratory effort, lungs clear to auscultation Cardiovascular: Rate/Rhythm: regular rate and regular rhythm Heart Sounds: normal S1 and normal S2 Gastrointestinal (Abdomen): Inspection/Auscultation: abdomen normal to inspection and normal bowel sounds
--- NOTE | 2018-03-30 07:32 | History & Physical Bridge Note ---
Date of Service March 30, 2018 History & Physical Bridge Note I have examined the patient, reviewed the History & Physical and in the interval since the performance of the History & Physical I have noted the following changes of clinical significance: no changes noted
[2018-03-30] MEDS ORDERED: BACITRACIN INJ 50,000 UNIT VIAL ONE (07:59)
[2018-03-30] MEDS ORDERED: BUPIVACAINE/EPINEPHRINE 0.5% MPF 1:200,000 30 ML VIAL ONE (07:59)
[2018-03-30] MEDS ORDERED: PHENYLEPHRINE 100MCG/ML 5ML SYR IV PRN (08:06)
[2018-03-30] MEDS ORDERED: HYDROmorphone INJ 1 MG/ML SYRINGE IV PRN ×2 (08:06→10:29)
[2018-03-30] MEDS ORDERED: ONDANSETRON INJ 2 MG/ML 2 ML VIAL IV PRN ×2 (08:06→10:29)
[2018-03-30] MEDS ORDERED: PROMETHAZINE HCL 12.5 MG in SODIUM CHLORIDE 0.9% 50 ML IV PRN (08:06)
[2018-03-30] MEDS ORDERED: ATROPINE SULFATE 0.1 MG/ML 10ML SYR IV PRN (08:06)
[2018-03-30] MEDS ORDERED: ePHEDrine sulfate 50 MG/ML AMP IV PRN (08:06)
[2018-03-30] MEDS ORDERED: fentaNYL citrate 100 MCG/2 ML VIAL IV PRN (08:06)
[2018-03-30] MEDS ORDERED: CEFAZOLIN 2,000 MG/15 ML IV PUSH IV ONE (08:09)
[2018-03-30] MEDS: DEXAMETHASONE SOD PHOSPHATE 8 MG in SYRINGE 0 ML IV SCH (08:41)
[2018-03-30] MEDS: GABAPENTIN 300 MG CAP PO SCH (08:41)
[2018-03-30] MEDS ORDERED: HYDROmorphone INJ 2 MG/ML SYR/VIAL ONE ×3 (08:48→09:24)
[2018-03-30] MEDS ORDERED: LIDOCAINE HCL 2% 2 ML VIAL/AMP(20MG/ML) INFIL ONE (08:48)
[2018-03-30] MEDS ORDERED: DEXAMETHASONE SOD INJ 4 MG/ML VIAL ONE ×2 (08:48)
[2018-03-30] MEDS ORDERED: ONDANSETRON INJ 2 MG/ML 2 ML VIAL ONE (08:48)
[2018-03-30] MEDS ORDERED: LARYING-O-JET KIT (LTA) ONE (08:48)
[2018-03-30] MEDS ORDERED: fentaNYL citrate 100 MCG/2 ML VIAL ONE (08:48)
[2018-03-30] MEDS ORDERED: MIDAZOLAM HCL 1 MG/ML 2ML VIAL ONE (08:48)
[2018-03-30] MEDS ORDERED: GLYCOPYRROLATE 0.2 MG/ML VIAL ONE (08:48)
[2018-03-30] MEDS ORDERED: SODIUM CHLORIDE 0.9% INJ 10 ML VIAL ONE (08:48)
[2018-03-30] MEDS ORDERED: PROPOFOL IV EMULSION 10 MG/ML 20 ML VIAL IV ONE (08:48)
[2018-03-30] MEDS ORDERED: NEOSTIGMINE METHYLSULFATE 1 MG/ML 10ML VIAL ONE (08:48)
--- NOTE | 2018-03-30 09:23 | Operative Report ---
Post Operative Report Pre & Post Diagnosis Operation Date: 03/30/18 07:45 Pre-Op Diagnosis: Severe back pain; lumbar disc herniation Procedure Operation Date: 03/30/18 07:45 Actual Procedures #1 removal of posterior Coflex implant L4-5. #2 lumbar decompression L3-4 with bilateral medial facetectomies. #3 removal of herniated free fragment L3-4. # 4 placement of 12 mm Coflex at L3-4. Surgeon Piter Durbin DO Desktop [employer] Associate Kim Frank Estimated Blood Loss 25 Findings Consistent with Post-Op Diagnosis Specimens None Description of Procedure Patient was met with preoperatively case discussed all questions addressed. After informed consent obtained patient was taken to the operative suite underwent intubation and placed in the prone position the Frank table on top of the Jorgito frame. All bony prominences were well-padded eyes inspected to ensure no external pressure placed upon the peer at this point the lumbar spine was prepped and draped in the normal sterile fashion. Sharp dissection with the assistance of Bovie cautery was performed down to and exposing the lamina and interlaminar space at L3-4. The Coflex at the L4-5 was clearly dislodged and inhibiting her progress. It was loose to testing. Subsequently elected to remove the L4-5 Coflex. After this is complete a midline decompression at L3-4 was performed including removal of all the ligamentum flavum bilateral medial facetectomies to perform adequate decompression. After this complete was able to mobilize the traversing L4 nerve root medially and at identified a massive herniated free fragment of disc material. This was removed in its entirety. There was explored several times to ensure all fragments were addressed. I then placed a 12 mm Coflex in the intralaminar space at L3-4. It was crimped in position. A 10 round JALYN drain inserted. Incision was then closed with 1 Vicryl fascia 2-0 Vicryl subtenons in 4 Monocryl for Fransen closure Steri- Strip sterile dressings placed. Patient will continue to PACU stable condition. Please note Kim Frank present throughout the entire procedure involved in patient positioning complex portions of the surgery and fashion closure. I attest to the content of the Intraoperative Record and any orders documented therein. Any exceptions are noted below.
[2018-03-30] MEDS ORDERED: KETOROLAC 30 MG/ML VIAL ONE (09:25)
[2018-03-30] MEDS ORDERED: ROCURONIUM BROMIDE 10 MG/ML 5 ML VIAL ONE (09:25)
--- NOTE | 2018-03-30 09:47 | Fluoroscopy Report ---
FL spine 1V any level CLINICAL HISTORY: COFLEX L3-L4 COMPARISON STUDY: Lumbar spine MRI March 25, 2018. FLUOROSCOPY TIME: 4.7 seconds. FLUOROSCOPIC IMAGES: 1 FINDINGS: Exact localization is difficult given partial visualization of the lumbar spine. A coflex d evice is noted. Hardware is intact. IMPRESSION: Fluoroscopic image of the lumbar spine, as described above. Electronically signed by: Diogenes Ponce M.D. 03/30/2018 9:46 AM
[2018-03-30] MEDS ORDERED: ACETAMINOPHEN 500 MG TAB PO PRN (10:29)
[2018-03-30] MEDS ORDERED: LORazepam 1 MG/2 ML VIAL IV PRN (10:29)
[2018-03-30] MEDS ORDERED: OXYCODONE HCL IR 5 MG TAB (IMMEDIATE RELEASE) PO PRN (10:29)
[2018-03-30] MEDS ORDERED: DO NOT ADMINISTER PNEUMOCOCCAL VACCINE PRN (10:29)
[2018-03-30] MEDS ORDERED: MAGNESIUM HYDROXIDE SUSP 30 ML UDC PO PRN (10:29)
[2018-03-30] MEDS ORDERED: DO NOT ADMINISTER FLU VACCINE PRN (10:29)
[2018-03-30] MEDS ORDERED: SODIUM CHLORIDE 0.9% 1000ML 1,000 ML IV SCH ×2 (10:45)
--- NOTE | 2018-03-30 12:36 | Anesthesiology Progress Note ---
Date of Service March 30, 2018 Anesthesia Post Procedure Vital Signs Vital Signs: Temp Pulse Pulse Pulse Resp BP BP 03/30/18 12:30 37 C 61 19 129/76 03/30/18 11:28 36.6 C 62 19 127/69 03/30/18 11:02 36.7 C 49 L 18 121/76 03/30/18 10:30 36.5 C 53 L 18 123/77 03/30/18 10:16 50 L 14 120/73 03/30/18 10:15 52 L 14 03/30/18 10:12 36.5 C 03/30/18 10:11 49 L 14 129/73 03/30/18 10:10 49 L 14 03/30/18 10:06 49 L 14 131/82 03/30/18 10:05 52 L 22 03/30/18 10:01 53 L 22 127/78 03/30/18 10:00 54 L 17 03/30/18 09:57 49 L 13 03/30/18 09:56 50 L 14 136/80 03/30/18 09:55 50 L 15 03/30/18 09:51 50 L 15 132/83 03/30/18 09:50 50 L 15 03/30/18 09:46 51 L 15 138/87 03/30/18 09:45 49 L 14 03/30/18 09:41 57 L 15 131/89 03/30/18 09:39 52 L 15 140/86 03/30/18 09:38 36.8 C 74 14 140/86 03/30/18 08:01 36.8 C 75 18 141/84 H 03/30/18 07:14 36.4 C L 66 18 130/71 03/29/18 23:01 36.6 C 59 L 18 107/66 03/29/18 15:49 36.6 C 72 18 136/73 Pulse Ox 03/30/18 12:30 96 03/30/18 11:28 98 03/30/18 11:02 98 03/30/18 10:30 96 03/30/18 10:16 98 03/30/18 10:15 96 03/30/18 10:12 94 03/30/18 10:11 95 03/30/18 10:10 94 03/30/18 10:06 98 03/30/18 10:05 96 03/30/18 10:01 96 03/30/18 10:00 98 03/30/18 09:57 100 03/30/18 09:56 100 03/30/18 09:55 100 03/30/18 09:51 100 03/30/18 09:50 100 03/30/18 09:46 100 03/30/18 09:45 100 03/30/18 09:41 99 03/30/18 09:39 100 03/30/18 09:38 100 03/30/18 08:01 99 03/30/18 07:14 99 03/29/18 23:01 97 03/29/18 15:49 99 Pain Intensity Lower Back: Pain Intensity: 0
[2018-03-30] MEDS: CEFAZOLIN 2000MG 2,000 MG/15 ML SYR IV SCH ×2 (16:06→23:45)
--- NOTE | 2018-03-30 17:43 | Hospitalist Progress Note ---
Date of Service March 30, 2018 Assessment & Plan (1) Lumbar back pain with radiculopathy affecting left lower extremity: Severe back pain; lumbar disc herniation Lumbar MRI reviewed H/O lumbar spinal surgery in 2012 for herniated disc Patient presented with back pain and weakness involving left ankle S/P Lumbar Decompression POD #0 Received IV Decadron Appreciate 's help Pain control Wound Care, Activity as per Ortho DVT Px: SCDs Subjective Patient is seen and examined at bedside Back pain is controlled Denies any chest pain, dyspnea, dizziness,nausea Family at bedside Physical Exam 2 Vital Signs (Past 24 Hours): Last Vital Signs Temp 36.5 C 03/30/18 15:12 Pulse 66 03/30/18 15:12 Resp 18 03/30/18 15:12 BP 137/79 03/30/18 15:12 Pulse Ox 96 03/30/18 15:12 Physical Exam: Physical Exam: Vitals signs as noted above General Appearance:Moderately built and nourished, no apparent distress Head: normocephalic, Atraumatic Eyes: normal inspection, EOMI Neck: supple, Trachea midline Respiratory/Chest: Normal breath sounds, CTA Cardiovascular: S1, S2, No murmur Abdomen/GI:Soft, Non tender, Bowel sounds present Back: Surgical Site in dressing, +drain Extremities/Musculoskelatal:normal inspection, no edema Neurologic/Psych:AAOX3, grossly no focal neurological deficits Skin: normal color, warm
[2018-03-30] MEDS: KETOROLAC 30 MG/ML VIAL IV PRN (18:46)
[2018-03-30] MEDS: DOCUSATE SODIUM 100 MG CAP PO SCH (20:05)
[2018-03-31] MEDS: KETOROLAC 30 MG/ML VIAL IV PRN (05:59)
[2018-03-31 07:31] LABS: Hematocrit (blood only) 43.6 % (42-52); Hemoglobin 14.3 g/dL (14.0-18.0); Mean Corpuscular Hgb Conc 32.8 g/dL (32-36); Mean Corpuscular Volume 86.5 fL (80-100); Platelet Count 275 K/uL (130-400); RDW Coefficient of Variation 14.1 % (11.5-14.5); Red Blood Count 5.04 M/uL (4.7-6.1); White Blood Count 16.91 K/uL (4.8-10.8)
[2018-03-31] MEDS: CEFAZOLIN 2000MG 2,000 MG/15 ML SYR IV SCH (07:31)
[2018-03-31 08:04] LABS: Calcium 8.4 mg/dl (8.5-10.1); Creatinine Clr Calc Pharmacy 142.2 ml/min; Est GFR (African American) 112.2; Est GFR (Non-African American) 96.8; Potassium 4.2 mmol/L (3.5-5.1)
[2018-03-31] MEDS: DOCUSATE SODIUM 100 MG CAP PO SCH (08:18)
--- NOTE | 2018-03-31 08:36 | Anesthesiology Progress Note ---
Date of Service March 31, 2018 Anesthesia Post Procedure Vital Signs Vital Signs: Temp Pulse Pulse Pulse Resp BP BP 03/31/18 07:01 36.5 C 67 19 124/76 03/31/18 03:25 36.7 C 68 16 97/57 L 03/30/18 22:50 36.7 C 65 18 107/53 L 03/30/18 19:47 36.7 C 54 L 18 107/61 03/30/18 15:12 36.5 C 66 18 137/79 03/30/18 13:43 36.8 C 73 18 142/66 H 03/30/18 12:30 37 C 61 19 129/76 03/30/18 11:28 36.6 C 62 19 127/69 03/30/18 11:02 36.7 C 49 L 18 121/76 03/30/18 10:30 36.5 C 53 L 18 123/77 03/30/18 10:16 50 L 14 120/73 03/30/18 10:15 52 L 14 03/30/18 10:12 36.5 C 03/30/18 10:11 49 L 14 129/73 03/30/18 10:10 49 L 14 03/30/18 10:06 49 L 14 131/82 03/30/18 10:05 52 L 22 03/30/18 10:01 53 L 22 127/78 03/30/18 10:00 54 L 17 03/30/18 09:57 49 L 13 03/30/18 09:56 50 L 14 136/80 03/30/18 09:55 50 L 15 03/30/18 09:51 50 L 15 132/83 03/30/18 09:50 50 L 15 03/30/18 09:46 51 L 15 138/87 03/30/18 09:45 49 L 14 03/30/18 09:41 57 L 15 131/89 03/30/18 09:39 52 L 15 140/86 03/30/18 09:38 36.8 C 74 14 140/86 Pulse Ox 03/31/18 07:01 99 03/31/18 03:25 96 03/30/18 22:50 96 03/30/18 19:47 96 03/30/18 15:12 96 03/30/18 13:43 97 01/16/19 12:30 96 03/30/18 11:28 98 03/30/18 11:02 98 03/30/18 10:30 96 03/30/18 10:16 98 03/30/18 10:15 96 03/30/18 10:12 94 03/30/18 10:11 95 03/30/18 10:10 94 03/30/18 10:06 98 03/30/18 10:05 96 03/30/18 10:01 96 03/30/18 10:00 98 03/30/18 09:57 100 03/30/18 09:56 100 03/30/18 09:55 100 03/30/18 09:51 100 03/30/18 09:50 100 03/30/18 09:46 100 03/30/18 09:45 100 03/30/18 09:41 99 03/30/18 09:39 100 03/30/18 09:38 100 Notes Mental Status: alert / awake / arousable and participated in evaluation Patient Amnestic to Procedure: Yes Nausea / Vomiting: adequately controlled Pain: adequately controlled Airway Patency, RR, SpO2: stable & adequate BP & HR: stable & adequate Hydration State: stable & adequate Anesthetic Complications: no major complications apparent and Pt Satisfied with anesthetic care
--- NOTE | 2018-03-31 10:42 | Orthopedic Progress Note ---
Date of Service March 31, 2018 Assessment & Plan (1) Lumbar disc herniation: Patient is status post discectomy. Is improving nicely and reasonable for discharge home. Present on Admission?: Yes Subjective Patient has complete resolution of his radicular complaints. Back pain is controlled. Physical Exam 2 Vital Signs (Past 24 Hours): Last Vital Signs Temp 36.5 C 03/31/18 07:01 Pulse 67 03/31/18 07:01 Resp 19 03/31/18 07:01 BP 124/76 03/31/18 07:01 Pulse Ox 99 03/31/18 07:01 Physical Exam: On exam he is in the chair at the bedside. He has no tension signs. He is demonstrating some very modest improvement of dorsiflexion. Plantarflexion is intact on the left.
--- NOTE | 2018-03-31 13:32 | Hospitalist Progress Note ---
Date of Service March 31, 2018 Assessment & Plan (1) Lumbar back pain with radiculopathy affecting left lower extremity: Severe back pain; lumbar disc herniation Lumbar MRI reviewed H/O lumbar spinal surgery in 2012 for herniated disc Patient presented with back pain and weakness involving left ankle S/P Lumbar Decompression POD #1 Received IV Decadron Leukocytosis likely secondary to Decadron Appreciate 's help Pain control Wound Care, Activity as per Ortho Radicular symptoms improved DVT Px: SCDs Subjective Patient is seen and examined at bedside Doing well today Back pain is controlled Radicular symptoms resolving Denies any chest pain, dyspnea, dizziness,nausea Planned to be discharged home today Physical Exam 2 Vital Signs (Past 24 Hours): Last Vital Signs Temp 36.5 C 03/31/18 11:23 Pulse 67 03/31/18 11:23 Resp 19 03/31/18 11:23 BP 124/76 03/31/18 11:23 Pulse Ox 99 03/31/18 11:23 Physical Exam: Physical Exam: Vitals signs as noted above General Appearance:Moderately built and nourished, no apparent distress Head: normocephalic, Atraumatic Eyes: normal inspection, EOMI Neck: supple, Trachea midline Respiratory/Chest: Normal breath sounds, CTA Cardiovascular: S1, S2, No murmur Abdomen/GI:Soft, Non tender, Bowel sounds present Back: Surgical Site in dressing, +drain Extremities/Musculoskelatal:normal inspection, no edema Neurologic/Psych:AAOX3, grossly no focal neurological deficits Skin: normal color, warm Results & Data Laboratory Results Short CBC 03/31/18 Range/Units 07:20 WBC 16.91 H (4.8-10.8) K/uL Hgb 14.3 (14.0-18.0) g/dL Hct 43.6 (42-52) % Plt Count 275 (130-400) K/uL BMP 03/31/18 07:20 Sodium 136 Potassium 4.2 Chloride 100 Carbon Dioxide 29 BUN 26 H Creatinine 1.05 Glucose 87 Calcium 8.4 L
[2018-04-01] MEDS ORDERED: BISACODYL 5 MG TABEC PO PRN (06:00)
[2018-04-01] MEDS ORDERED: POLYETHYLENE (MIRALAX) 17 GM PACK PO SCH (09:25)
--- NOTE | 2018-04-01 17:49 | Discharge Summary ---
Date of Service April 01, 2018 Admission HPI Per Admitting Provider DICTATED BY: Joby Sousa MD DATE OF ADMISSION: 03/26/2018 CHIEF COMPLAINT: Severe back pain. HISTORY OF PRESENT ILLNESS: A 27-year-old male with past medical history significant for herniated disc, status post back surgery in 2012, presents with ongoing severe back pain since the last 2-3 weeks. Initially started as a backache. He saw his family doctor who placed him on a steroid taper. He also on and off had incontinence of urine, but it got better a couple of days ago, but today again, he has developed incontinence. Also, over the last 1-2 days, he is having weakness in his left lower extremity , has to drag his left leg. MRI done in the ER unofficial report as per ER has a herniated disc at L2-S1. The patient has an appointment with Dr. Durbin in the end of this month, but he is out of town right now, and the ER contacted Dr. Sherman and Dr. Sherman has agreed to see the patient in the morning and advised to put him on IV Decadron 8 mg q.6 h. Currently, patient is resting comfortably and hemodynamically stable. Denies any headache, no blurred vision, no earache, no runny nose, no sore throat, no cough, no fever, no chills, no nausea, no vomiting, no abdominal pain. Normal bowel and bladder movements otherwise. No swelling in the legs. Admission Exam Per Admitting Provider PHYSICAL EXAMINATION: GENERAL: Patient is of moderate built, not in acute distress. VITAL SIGNS: Temperature 36.7, pulse 84, respiratory rate 18, blood pressure 149/86, oxygen saturation 98% on room air. HEENT: No pallor, no icterus. Pupils equal, round, and reactive to light. NECK: No JVD, no neck mass, no carotid bruit. CARDIOVASCULAR SYSTEM: S1 and S2 heard, regular rate and rhythm, no murmur, no gallop. RESPIRATORY SYSTEM: Clear to auscultation bilaterally. No wheezing, no crackles. GASTROINTESTINAL: Abdomen is soft, bowel sounds present, nontender, no distention. CENTRAL NERVOUS SYSTEM: Cranial nerves II through XII grossly intact. EXTREMITIES: No swelling of right or left lower extremity, mild weakness of left lower extremity. MUSCULOSKELETAL: No spinal tenderness. Principal Diagnosis Discharge Information Discharge Diagnosis lumbar disk herniation Discharge Goals Decrease discomfort Discharge Activity Limitations Per instructions/follow-up Discharge Data Allergies Allergy/AdvReac Type Severity Reaction Status Date / Time Sulfa (Sulfonamide Allergy Rash Verified 03/25/18 23:52 Antibiotics) Consultations 03/26/18 01:37 ED Decision to Admit Stat 03/26/18 08:00 Consult Orthopedic Surgery Routine 03/28/18 07:29 Consult Orthopedic Surgery Routine Procedures Performed Operation Date: 03/30/18 07:45 Actual Procedures p L3-L4 Lumbar Decompression with use of Coflex(Left) - Piter Durbin DO s Removal Lumbar Hardware Spine(Left) - Piter Durbin DO MRI Lumbar Spine: 1. Advanced multilevel spondylitic changes 2. Right paracentral disc protrusion at the L2-3 level with secondary spinal canal narrowing 3. Moderate central disc extrusion at the L3-4 level with moderate spinal canal narrowing 4. Postsurgical changes at the L4-5 level 5. Small moderate right paracentral disc protrusion at the L5-S1 level. ADDENDUM There is a large posterior central disc extrusion with a possible sequestered fragment at the L3-L4. This was previously underestimated on the prior study. The disc extrusion/fragmented measures approximately 16 x 14 x 6 mm in size and results in severe central canal narrowing with compression of the transiting nerve roots/cauda equina. The central canal measures a diameter of 3.9 mm. CXR: No active disease in the chest. Ordered Studies 03/25/18 23:10 MR lumbar spine wo con Stat 03/30/18 08:00 FL spine 1V any level Routine 03/30/18 10:55 FL fluoroscopy <1hr Routine Hospital Course (1) Lumbar back pain with radiculopathy affecting left lower extremity: Severe back pain; lumbar disc herniation Lumbar MRI reviewed H/O lumbar spinal surgery in 2013 for herniated disc Patient presented with back pain and weakness involving left ankle S/P Lumbar Decompression POD #1 Received IV Decadron Leukocytosis likely secondary to Decadron Appreciate 's help Pain control Wound Care, Activity as per Ortho Radicular symptoms improved DVT Px: SCDs Total Time Total Time Spent Total Time Spent (In Minutes): 25 minutes Total Time Includes: Examination of the Patient, Discharge Planning, Medication Reconciliation, Communication With Other Providers and Other Discharge Plan Discharge Items Patient Disposition: Home - Self-Care Reason For Visit: SEVERE BACK PAIN Discharge Diagnosis: lumbar disk herniation Condition: Good Discharge Goals: Decrease discomfort Activity: Per 'Additional Instructions' section Non-emergency contact: Primary Care Provider Call non-emergency contact if: you have any medication questions Diet: Regular Addtl Provider Instructions: ACTIVITY RECOMMENDATIONS: SELF CARE INSTRUCTIONS AFTER A LAMINECTOMY 1. No prolonged sitting (less than 30 minutes for the first 3 weeks after surgery). 2. No bending, lifting more than 5 pounds, or twisting (roll like a log when turning in bed). 3. You may shower 3 days after surgery if no drainage from wound. Thoroughly dry wound. Do not soak in the tub. 4. Please walk as much as you can for exercise. Gradually increase the distance that you walk as your endurance increases. 5. You may drive in 7-10 days if you are comfortable and no longer requiring pain medications. SPECIAL CARE INSTRUCTIONS: VERY IMPORTANT TO READ AND REVIEW A. Your surgical incision has been closed with a cosmetic suture under the skin that will dissolve in about 6 weeks. In 14 days, you can use a pair of clean scissors and cut the suture that is left outside of the skin at the ends of your incision. B. Complications are uncommon, but please contact us if you have any signs or symptoms of: 1. wound infection (fever higher than 102.5 degrees F, redness, separation of wound, drainage, or increasing pain from the incision) 2. blood clots in legs (pain, swelling, redness and warmth in legs) 3. urinary tract infection (fever higher than 102.5 degrees, burning upon urination or increased frequency of urination) 4. nerve problems (inability to walk on your toes or heels, numbness, loss of bowel or bladder control) 5. any other symptoms that concern you. C. Please call the office at if you have any concerns or questions about your operation or recovery. MANAGING PAIN AFTER SPINAL SURGERY 1. Narcotic medication is intended for short-term use and will be provided for surgical pain. Surgical pain usually lasts for a period of 4-6 weeks. Narcotic medication includes Percocet, Vicodin, Darvocet, Tylenol #3 or Lortab. 2. Longer-term pain is more appropriately treated with non-narcotic medication such as Tylenol ES. 3. Muscle spasm is not appropriately treated with narcotics. Muscle relaxers such as Soma, Flexeril or Skelaxin can be used along with Tylenol ES. 4. Remember that we all live with some "aches and pains". This is not unusual or uncommon after an injury or as we get older. 5. We will provide appropriate medication within the normal guidelines of their prescribed use. We will also be very cautious and aware of potential abuse and extended duration of patients' medication needs. 6. Please allow 2-3 days to process refills. Prescriptions will not be mailed but must be picked up at the office. FOLLOW UP VISIT: Keep your scheduled follow-up appointment. Any questions, please call the office at . Prescriptions: New oxycodone 5 mg Tablet 5 mg PO Q4H PRN (Reason: Pain, Severe) Qty: 30 RF: 0 Continue dexamethasone 4 mg tablet 4 mg PO UD RF: 0 ibuprofen 200 mg Tablet 400 mg PO QID PRN (Reason: Pain) RF: 0 Visit Report Forms: [employer] [facility] Stand-Alone Forms: [employer], Opioid Pain Management Discharge Orders: Discharge Order (Routine); Ordered 03/31/18 Ordered By: Piter Durbin Admission Data Admit Date/Time: 03/26/18 02:27 Attending Provider: Piter Durbin Admit Provider: Joby Sousa Primary Care Provider: PCP,NO Other Providers: Joby Sousa ; Larry Sherman ; Piter Durbin ; Michael Alcazar Service: Surgical Services Other Interventions: Discharge Summary Assessment (RN) Last Done: 03/31/18 11:23 DC Date/Time DO NOT enter until pt leaves facility: 03/31/18 11:59
== END 2018-03-31 11:59 | disposition home or self-care (01) | DRG 460 ==
LOC: ED 22:51 → 3N 03-26 02:27 → SUATTDRO 03-26 02:27 → 3N 03-26 02:51

== ENCOUNTER 2024-05-15 08:51 | Inpatient (IN) ==
--- NOTE | 2024-05-11 15:31 | Anesthesiology Consultation ---
Date of Service May 11, 2024 Assessment & Plan (1) Encounter for pre-operative examination: Chart Review Chart Review: Acceptable Risk for Surgery (pending anesthesia evaluation of unconfirmed EKG ) and Patient NOT seen in Pre Admission Testing - Take Ozempic for weight loss; last dose of Ozempic taken 05/07/24- will be off Ozempic x 8 days by DOS 05/15/24 -Infectious Disease screening: Per PAT nursing assessment on 05/11/24. No known infectious disease contacts in past 10 days or current infectious disease symptoms. No recent travel outside the country. History Surgery Operation Date: 05/15/24 12:05 Proposed Procedures p L2-L4 Decompression and Fusion, Spinal Cord Monitoring - Piter Durbin, Height/Weight Height: 6 ft 3 in Weight: 107.955 kg Allergies Allergy/AdvReac Type Severity Reaction Status Date / Time Sulfa (Sulfonamide Allergy Intermediate Rash Verified 05/11/24 12:08 Antibiotics) Medications Home Medications Medication Instructions Recorded Confirmed Last Taken multivitamin 1 tab PO DAILY #30 tabs 01/13/19 05/11/24 Unknown oxycodone-acetaminophen 5 mg-325 1 tab PO Q4H PRN pain #16 tabs 05/09/24 05/11/24 Unknown mg tablet (Percocet) prednisone 10 mg tablet See Rx Instructions .Route 05/09/24 05/11/24 Unknown .COMPLEX #39 tabs semaglutide 2 mg/dose (8 mg/3 mL) 2 mg subcut WK 05/11/24 05/11/24 05/07/24 subcutaneous pen injector (Ozempic) Past Medical History Medical History Foot drop, left Lumbar back pain with radiculopathy affecting left lower extremity Past Family History Family History Father Myocardial infarction Coronary heart disease Mother No problems noted. Sister Diabetes type 1, controlled Denies family history of Ovarian cancer Prostate cancer Breast cancer Colorectal cancer Past Surgical History Surgical History History of lumbosacral spine surgery (03/2018) L3-L4 lumbar decompression, coflex present Hx of decompressive lumbar laminectomy (2012) L4-L5. 2013. GETA. NO issues. S/P arthroscopy of shoulder (08/2019) Right shoulder labrum repair S/P tonsillectomy Social History Smoking Status: Never smoker Smoking cigarettes per day: quit smoing at 21 Do You Dip or Chew Tobacco: Yes (Advised by nursing) Hx Alcohol Use: Yes Alcohol type: beer alcohol intake frequency: a few times a month Hx Substance Use: No substance use type: does not use Lab Results Anesthesia Preop Results Results Anesthesia Widget: WBC 7.22 K/ul (4.8-10.8) 05/11/24 Hgb 15.6 g/dl (14.0-18.0) 05/11/24 Hct 46.9 % (42.0-52.0) 05/11/24 Plt 255 K/uL (130-400) 05/11/24 Na 140 mmol/L (136-145) 05/11/24 K 4.0 mmol/L (3.5-5.1) 05/11/24 Cl 106 mmol/L (98-107) 05/11/24 CO2 30 mmol/L (21-32) 05/11/24 BUN 16 mg/dl (6-23) 05/11/24 Creat 0.91 mg/dl (0.6-1.4) 05/11/24 Glucose Level 95 mg/dl (70-99(Fasting)) 05/11/24 PT 10.8 Seconds (9.0-12.0) 05/11/24 PTT 28 Seconds (21-31) 05/11/24 INR 1.0 (0.9-1.1) 05/11/24 Urine Color Yellow 05/11/24 Urine Appearance Cloudy (Clear) A 05/11/24 Urine pH 7.0 (4.5-7.5) 05/11/24 Urine Specific [place] 1.020 (1.000-1.030) 05/11/24 Urine Protein Negative (Negative) 05/11/24 Urine Glucose (UA) Negative (Negative) 05/11/24 Urine Ketones Negative (Negative) 05/11/24 Urine Blood Negative (Negative) 05/11/24 Urine Nitrite Negative (Negative) 05/11/24 Urine Bilirubin Negative (Negative) 05/11/24 Urine Urobilinogen Negative (Negative) 05/11/24 Urine Leukocyte Esterase Negative (Negative) 05/11/24 Urine WBC (Auto) 0-5 /hpf (0-5) 05/11/24 Urine RBC (Auto) 0-2 /hpf (0-2) 05/11/24 Urine Hyaline Casts (Auto) 0-2 /lpf (0-2) 05/11/24 Urine Epithelial Cells (Auto) 0-2 /hpf (0-2) 05/11/24 Urine Bacteria (Auto) None Seen (None Seen) 05/11/24 Blood Type O Positive 05/11/24 Antibody Screen NEGATIVE 05/11/24 Testing Electrocardiogram Date: 05/11/24 Findings: + NSR @ (81bpm) unconfirmed- will need reviewed by anesthesiologist DOS Chest X-Ray Date: 05/11/24 Findings: + NAD
[2024-05-15] MEDS: LACTATED RINGER'S 1,000 ML IV SCH (09:16)
[2024-05-15] MEDS: LR 60ML/HR IV SCH (09:16)
[2024-05-15] MEDS: ACETAMINOPHEN 500 MG TAB PO SCH (09:16)
[2024-05-15] MEDS: GABAPENTIN 900 MG DOSE PO SCH (09:16)
[2024-05-15] MEDS: CeleBREX 200 MG CAP PO SCH (09:16)
[2024-05-15] MEDS ORDERED: MIDAZOLAM HCL 1 MG/ML 2ML VIAL ONE (09:44)
[2024-05-15] MEDS ORDERED: HYDROmorphone INJ 2 MG/ML SYR/VIAL ONE (09:45)
[2024-05-15] MEDS ORDERED: fentaNYL citrate PF 100 MCG/2 ML VIAL ONE (09:45)
--- NOTE | 2024-05-15 09:52 | History & Physical Bridge Note ---
Date of Service May 15, 2024 History & Physical Bridge Note I have examined the patient, reviewed the History & Physical and in the interval since the performance of the History & Physical I have noted the following changes of clinical significance: no changes noted
--- NOTE | 2024-05-15 09:54 | History & Physical Report ---
Date of Service May 15, 2024 Assessment & Plan (1) Lumbar disc herniation with radiculopathy: Plan: L2-L4 decompression and fusion History of Present Illness Chief Complaint: Back and leg pain Primary Care Provider: Silvia Arvizu DO This is a 33-year-old male who presents with marked decline in status with severe leg pain and neurologic deficit. Is here for surgical invention. Allergies Allergy/AdvReac Type Severity Reaction Status Date / Time Sulfa (Sulfonamide Allergy Intermediate Rash Verified 05/15/24 09:00 Antibiotics) Home Medications Medication Instructions Recorded Confirmed Type multivitamin 1 tab PO DAILY #30 tabs 01/13/19 05/15/24 Rx oxycodone-acetaminophen 5 mg-325 1 tab PO Q4H PRN pain #16 tabs 05/09/24 05/15/24 Rx mg tablet (Percocet) prednisone 10 mg tablet See Rx Instructions .Route 05/09/24 05/15/24 Rx .COMPLEX #39 tabs semaglutide 2 mg/dose (8 mg/3 mL) 2 mg subcut WK 05/11/24 05/11/24 History subcutaneous pen injector (Ozempic) Past Med/Surg History Problem List (Updated 05/15/24 @ 09:54 by Piter Durbin DO) Lumbar disc herniation with radiculopathy Encounter for pre-operative examination Foot drop (Acute) Lumbar radiculopathy (Acute) Male infertility Chewing tobacco nicotine dependence Obesity History of herniated intervertebral disc Medical History Foot drop, left Lumbar back pain with radiculopathy affecting left lower extremity Surgical History History of lumbosacral spine surgery (03/2018) L3-L4 lumbar decompression, coflex present Hx of decompressive lumbar laminectomy (2012) L4-L5. 2013. GETA. NO issues. S/P arthroscopy of shoulder (08/2019) Right shoulder labrum repair S/P tonsillectomy Family History Father Myocardial infarction Coronary heart disease Mother No problems noted. Sister Diabetes type 1, controlled Denies family history of Ovarian cancer Prostate cancer Breast cancer Colorectal cancer Social History Smoking Status: Never smoker Tobacco Type: Smokeless Tobacco (Dip or Chew) Age Started Using Tobacco: 19; packs per day: 1; Cigarettes Per Day: quit smoing at 21; Second Hand Exposure: No; Do You Dip or Chew Tobacco: Yes (Advised by nursing); Tobacco Cessation Education Requested by Patient: No Hx Alcohol Use: Yes Alcohol type: beer Alcohol Intake Frequency: Monthly or Less Hx Substance Use: No Preferred Language: Frisian Communication Ability: Effective Visual Impairment: Limited Hearing Ability: Normal Agriculture Consultant Required: No Beliefs That Will Affect Care: None marital status: Life Partner Current Living Situation: Spouse current occupational status: employed current occupation: [employer] How many Children do You have: 0 Other Information That Helps Us Care for You: No Feels Safe at Home: Yes Safety Concerns: Feels Safe At This Time Childhood Exposure to Second-Hand Smoke: Yes Diet: low carbohydrate caffeine: Yes during the past year weight has: decreased > 10 lbs Dental Care, Regularly: Yes Physical Activity Frequency: Daily Seatbelt Use: always Sunscreen Use: No Assistive Devices: Glasses Physical Exam Physical Exam: Patient is alert and oriented Heart regular rhythm Lungs clear Results & Data Results & Data Vital Signs (Past 12 Hours) Vital Signs Temp Pulse Resp BP Pulse Ox O2 Del Method 05/15/24 09:02 36.7 C 85 18 136/92 96 Room Air
[2024-05-15] MEDS ORDERED: ePHEDrine sulfate 50 MG/ML AMP IV PRN (10:18)
[2024-05-15] MEDS ORDERED: DROPERIDOL 5 MG/2 ML VIAL IV PRN (10:18)
[2024-05-15] MEDS ORDERED: ATROPINE SULFATE 0.1 MG/ML 10ML SYR IV PRN ×2 (10:18→13:18)
[2024-05-15] MEDS ORDERED: PHENYLEPHRINE HCL 10 MG/ML VIAL ONE (10:50)
[2024-05-15] MEDS: BUPIVACAINE/EPINEPHRINE 0.25% 1:200,000 30 ML VIAL ONE (11:13)
[2024-05-15] MEDS: ceFAZolin 330 MG/ML 1 GM VIAL ONE (11:14)
[2024-05-15] MEDS ORDERED: ONDANSETRON INJ 2 MG/ML 2 ML VIAL ONE (12:34)
[2024-05-15] MEDS ORDERED: SUGAMMADEX SODIUM 200 MG/2 ML VIAL IV ONE ×2 (12:34→12:40)
--- NOTE | 2024-05-15 12:49 | Operative Report ---
Post Operative Report Pre & Post Diagnosis Operation Date: 05/15/24 10:05 Pre-Op Diagnosis: #1 recurrent lumbar disc herniation with radiculopathy #2 lumbar spinal stenosis Post-Op Diagnosis: Same I identified the patient and participated in the time-out.: Yes Procedure Operation Date: 05/15/24 10:05 Actual Procedures #1 removal of posterior interspinous spacer L3-L4. #2 revision decompression with bilateral medial facetectomies and foraminotomies L1-L2, L2-L3 L3-L4. #3 posterior spinal fusion L2-L4. #4 placement posterior instrumentation L2-L4 using Ivey. #5 interbody fusion L2-L3 L3-L4. #6 placement of 13 x 26 mm Spira cage at L3-L4 and 14 x 26 mm x 2 at L4-5. #7 placement of infuse collagen sponge, with Koros in the posterior gutters and os design interbody space. #8 placement locally harvested morselized graft posterior gutters. #9 placement of versa wrap of the exposed dura. Surgeon Piter Durbin, DO Fur Remodeler Kim Frank Estimated Blood Loss 550 Findings See Below The patient is 6 foot 3 weighing over 112 kg with a BMI in excess of 31. The patient's body habitus did contribute to significant technical difficulty with positioning exposure and the procedure itself at least 50% increased operative time. Specimens None Indications This is a 33-year-old male with a presents with marked radiculopathy and progressive neurologic deficit and a foot drop. Subsequently he is here for urgent decompression and fusion. Description of Procedure Patient was met with identified informed consent obtained. Patient was then taken to the operative suite underwent intubation placed in a prone position on the Frank table atop the Jorgito frame. All bony prominences well-padded eyes inspected to ensure no external precipice spinal. This point the lumbar spine was prepped and draped in normal sterile fashion. Sharp dissection with the assistance of Bovie cautery from down to and exposing the lamina and transverse processes of L2 remaining lamina transverse processes of L3-L4. And then proceeded move the anterior spinous construct at L3-L4. After this a revision complete laminectomy of L3 was performed including bilateral medial facetectomies and foraminotomies addressing all spinal stenosis as well as massive disc fragments on the left. Performed complete laminectomy of L2 with bilateral medial facetectomies and foraminotomies addressing disc fragments again on the left lateral recess of the canal. Lastly partial laminectomy of L1 with bilateral medial facetectomies to address all subarticular stenosis. Pedicle screws were then placed in L2-L3-L4 bilaterally with the assistance of fluoroscopy purposes giovanni placed. By way of transfer approach on the left discectomy of L3-L4 was performed endplates guarded to subcortical being bone and a 14 x 26 mm spiral cage filled with os designed tapped in position. Then proceeded to L2-L3 and again by way of transfer approach on the left a discectomy performed endplates guided to subcortical and bone a 13 x 26 mm Spira cage filled with os design bone graft tapped in position. Then proceeded to the right transforaminal region at L3-L4. Discectomy again performed. Endplates guided to subcortical and bone and a second 14 x 26 mm Spira cage filled with os design bone graft tapped in position. The rods were then compressed locked in a final position bilaterally. Transverse processes of L2-L3-L4 burred to subcortical bleeding bone. Infuse collagen sponge, with Koros and local autograft placed in posterior gutters. Versa wrap placed over the exposed dura. 15 round JALYN drain inserted. The incision was then closed with 1 Vicryl the fascia 2-0 Vicryl subcutaneously and 4 Monocryl for final skin closure. Steri- Strips sterile dressing placed. Patient waken taken to PACU stable condition. Please note spinal cord monitoring was utilized at the procedure no changes noted. Lastly Kim Frank was present at the entire surgery and while the patient positioning complex portion of the surgery and final skin closure. I attest to the content of the Intraoperative Record and any orders documented therein. Any exceptions are noted below.
[2024-05-15] MEDS: fentaNYL citrate PF 100 MCG/2 ML VIAL IV PRN (13:06)
--- NOTE | 2024-05-15 13:24 | Fluoroscopy Report ---
FL lumbar spine 2-3V CLINICAL HISTORY: L2-L4 DECOMPRESSION AND FUSION COMPARISON STUDY: None FLUOROSCOPY TIME: 21 seconds FLUOROSCOPY IMAGES: 3 EXPOSURE DOSE: 20 mGy FINDINGS: Fluoroscopy was provided for lumbar decompression and fusion. IMPRESSION: Intraoperative fluoroscopy. ACT 112: Negative or not required by law. Electronically signed by: Tomás Acuña M.D. 05/15/2024 1:23 PM
[2024-05-15] MEDS: HYDROmorphone INJ 2 MG/ML SYR/VIAL IV PRN (13:26)
[2024-05-15] MEDS ORDERED: HYDROmorphone INJ 0.5 MG/0.5 ML SYR IV PRN (14:08)
[2024-05-15] MEDS ORDERED: bisacodyL 10 MG SUPP PR PRN (14:08)
[2024-05-15] MEDS ORDERED: ALUMINUM/MAGNESIUM SUSP 30 ML UDC PO PRN (14:08)
[2024-05-15] MEDS ORDERED: METOCLOPRAMIDE HCL INJ 5 MG/ML 2 ML VIAL IV PRN (14:08)
[2024-05-15] MEDS ORDERED: SOD PHOSPHATE/SOD BIPHOSPHATE ENEMA 132 ML BTL PR PRN (14:08)
[2024-05-15] MEDS ORDERED: LORazepam 2 MG/1 ML VIAL IV PRN (14:08)
[2024-05-15] MEDS ORDERED: LORazepam 0.5 MG TAB PO PRN (14:08)
[2024-05-15] MEDS ORDERED: HYDROmorphone INJ 1 MG/ML SYRINGE IV PRN (14:08)
[2024-05-15] MEDS ORDERED: FAMOTIDINE 20 MG TAB PO PRN (14:08)
[2024-05-15] MEDS ORDERED: ACETAMINOPHEN 1,000 MG/100 ML VIAL IV PRN (14:08)
[2024-05-15] MEDS ORDERED: NALOXONE HCL 0.4 MG/1 ML VIAL/CARP IV PRN (14:08)
[2024-05-15] MEDS ORDERED: diphenhydrAMINE Capsule 25 MG CAP PO PRN (14:08)
[2024-05-15] MEDS ORDERED: DO NOT ADMINISTER FLU VACCINE PRN (14:08)
[2024-05-15] MEDS ORDERED: DO NOT ADMINISTER PNEUMOCOCCAL VACCINE PRN (14:08)
[2024-05-15] MEDS ORDERED: ONDANSETRON INJ 2 MG/ML 2 ML VIAL IV PRN (14:08)
[2024-05-15] MEDS ORDERED: PROMETHAZINE 12.5 MG/50.5 ML BAG IV PRN (14:08)
[2024-05-15] MEDS ORDERED: hydrOXYzine HCl 25 MG TAB PO PRN (14:08)
[2024-05-15] MEDS ORDERED: MAGNESIUM HYDROXIDE SUSP 30 ML UDC PO PRN (14:08)
--- NOTE | 2024-05-15 14:11 | Anesthesiology Progress Note ---
Date of Service May 15, 2024 Anesthesia Post Procedure Vital Signs Vital Signs: Temp Pulse Resp BP Pulse Ox O2 Del Method O2 Flow Rate 05/15/24 14:01 36.4 C L 05/15/24 13:50 92 H 16 139/90 98 Room Air 05/15/24 13:40 81 16 140/72 99 Room Air 05/15/24 13:30 93 H 15 142/91 H 100 Oxymask 5 05/15/24 13:20 80 16 158/85 H 100 Oxymask 5 05/15/24 13:10 84 16 141/105 H 100 Oxymask 5 05/15/24 13:01 36.0 C L 78 16 148/106 H 96 Oxymask 5 05/15/24 09:02 36.7 C 85 18 136/92 96 Room Air Pain Intensity Left Leg: Pain Intensity: 4 Transfer of Care Handoff Completed per policy Notes Mental Status: alert / awake / arousable Patient Amnestic to Procedure: Yes Nausea / Vomiting: adequately controlled Pain: adequately controlled Airway Patency, RR, SpO2: stable & adequate BP & HR: stable & adequate Hydration State: stable & adequate Anesthetic Complications: no major complications apparent
[2024-05-15] MEDS: ceFAZolin 2000MG 2,000 MG/15 ML SYR IV SCH ×2 (14:50→19:35)
[2024-05-15] MEDS: FLOSEAL HEMOSTATIC MATRIX 10ML TOP ONE (14:50)
[2024-05-15] MEDS: HYDROmorphone INJ 2 MG/ML SYR/VIAL ONE (14:51)
[2024-05-15] MEDS: KETOROLAC 30 MG/ML VIAL IV PRN (17:50)
[2024-05-15] MEDS: traMADol HCL 50 MG TABLET PO PRN (19:43)
[2024-05-15] MEDS: DOCUSATE SODIUM/SENNA 50/8.6MG TAB PO SCH (20:12)
[2024-05-16] MEDS: oxyCODONE HCL IR 5 MG TAB (IMMEDIATE RELEASE) PO PRN (03:06)
[2024-05-16] MEDS: POLYETHYLENE (MIRALAX) 17 GM PACK PO SCH (05:31)
[2024-05-16] MEDS: dexAMETHasone 6 MG in SYRINGE 0 ML IV SCH (07:39)
[2024-05-16] MEDS: MULTIVITAMIN TAB PO SCH (07:39)
[2024-05-16 08:00] LABS: Basophils # (auto) 0.02 K/uL (0.00-0.20); Basophils % (auto) 0.2 %; Eosinophils # (auto) 0.04 K/uL (0.00-0.50); Eosinophils % (auto) 0.4 %; Hematocrit (blood only) 35.7 % (42.0-52.0); Hemoglobin 11.8 g/dl (14.0-18.0); Immature Granulocytes # (auto) 0.05 K/uL (0.01-0.20); Immature Granulocytes % (auto) 0.4 %; Lymphocytes # (auto) 1.76 K/uL (1.20-3.40); Lymphocytes % (auto) 15.6 %; Mean Corpuscular Hemoglobin 27.9 pg (25.0-34.0); Mean Corpuscular Hgb Conc 33.1 g/dL (32.0-36.0); Mean Corpuscular Volume 84.4 fL (80.0-100.0); Mean Platelet Volume 11.1 fL (9.4-12.4); Monocytes # (auto) 1.12 K/uL (0.11-0.59); Monocytes % (auto) 9.9 %; Neutrophils # (auto) 8.29 K/uL (1.40-6.50); Neutrophils % (auto) 73.5 %; Platelet Count 192 K/uL (130-400); RDW Coefficient of Variation 13.4 % (11.5-14.5); RDW Standard Deviation 41.4 fL (36.4-46.3); Red Blood Count 4.23 M/uL (4.70-6.10); White Blood Count 11.28 K/ul (4.8-10.8)
[2024-05-16 08:10] LABS: BUN Creatinine Ratio 14.9 (10-20); Calcium 8.3 mg/dl (8.6-10.3); Creatinine Clr Calc Pharmacy 163.6 ml/min
--- NOTE | 2024-05-16 09:37 | Orthopedic Progress Note ---
Date of Service May 16, 2024 Assessment & Plan (1) Lumbar disc herniation with radiculopathy: Plan: At this time we will initiate physical therapy monitor his JALYN output over the discharge home in the next few days. Admission and Anticipated Discharge Date Admission Date: May 15, 2024 Subjective Back pain controlled leg symptoms markedly improved Physical Exam Physical Exam: Patient is up and ambulating. She comfortable. Still significant deficits to left dorsiflexion but appears to have improved. Results & Data Vital Signs (Past 12 Hours) Vital Signs Temp Pulse Resp BP Pulse Ox O2 Del Method 05/16/24 06:58 36.9 C 87 16 109/67 93 Room Air 05/16/24 02:38 37.1 C 97 H 18 98/64 L 96 Room Air 05/15/24 22:32 36.9 C 94 H 18 103/59 L 95 Room Air Queries Orthopedic Spine Obesity: Yes
[2024-05-16] MEDS: ONDANSETRON 4 MG OD TAB PO PRN (20:26)
[2024-05-17 07:39] VITALS: BP 112/71; PULSE 79; RESP 16; TEMP 98.1; O2SAT 96
--- NOTE | 2024-05-17 08:01 | Discharge Summary ---
Date of Service May 17, 2024 Admission HPI Per Admitting Provider This is a 33-year-old male who presents with marked decline in status with severe leg pain and neurologic deficit. Is here for surgical invention. Principal Diagnosis Recurrent lumbar disc herniation with radiculopathy and neural deficit Discharge Data Allergies Allergy/AdvReac Type Severity Reaction Status Date / Time Sulfa (Sulfonamide Allergy Intermediate Rash Verified 05/15/24 09:00 Antibiotics) Procedures Performed Operation Date: 05/15/24 10:05 Actual Procedures p L2-L4 Decompression and Fusion, Spinal Cord Monitoring(Not Applicable) - Piter Durbin DO Ordered Studies 05/15/24 12:05 [place] lumbar spine 2-3V Routine Hospital Course (1) Lumbar disc herniation with radiculopathy: Patient with lumbar decompression fusion trial as well as taken orthopedic for postoperative. Postop he progressed appropriately. Leg pain markedly improved. Strength improving. JALYN drain decreasing. Pain well-controlled. Subsidy discharged home. Discharge orders instructions from the chart for further review. Total Time Total Time Spent Total Time Spent (In Minutes): 20 minutes Discharge Plan Discharge Items Patient Disposition: Home - Self-Care Reason For Visit: Lumbar Disc Herniation, Left Foot Drop Discharge Diagnosis: Lumbar disc herniation with radiculopathy and neurologic deficit Activity: As commented below Non-emergency contact: Primary Care Provider Call non-emergency contact if: you have any medication questions Follow-up/Referrals: Silvia Arvizu DO [Primary Care Provider] - Diet: Regular Addtl Attending Provider Instructions: ACTIVITY RECOMMENDATIONS: SELF CARE INSTRUCTIONS AFTER THORACIC/LUMBAR FUSIONS 1. You may walk to your tolerance. It is good exercise for your legs and back. Expect some back and intermittent leg aches and pains. 2. You may perform "counter-top" level activities (make a sandwich, genaro with a project, etc.). 3. No bending or lifting of more than 10 pounds or back twisting of any nature (roll like a log when turning in bed). 4. You may ride in a car for 20-30 minutes at a time. No driving until after your first visit with your doctor. 5. Frequent changes of position and restricting sitting to 30 minutes at a time will help limit the amount of back spasms and stiffness you may experience. 6. You may discontinue the use of ambulatory aids (cane, crutches, etc.) once your strength and confidence allow. 7. You may equine breeder the shower and let water strike your incision when you arrive home at least once daily. Do not take a tub bath, sit in a hot tub or go into a swimming pool until after your first recheck in the office. 8. You may resume previous diet. SPECIAL CARE INSTRUCTIONS: VERY IMPORTANT TO READ AND REVIEW A. Your surgical incision has been closed with a cosmetic suture under the skin that will dissolve in about 6 weeks. In 14 days, you can use a pair of clean scissors and cut the suture that is left outside of the skin at the ends of your incision. 1. The small skin tapes can be removed 7 days after surgery if they have not fallen off by that point. 2. You may keep the wound open to air as much as possible to promote healing after post-op day number 5 unless told otherwise by your doctor. 3. If you think the wound looks like it is becoming infected (redness or worsening drainage) and/or you are experiencing fever, chill or worsening back pain and muscle spasms, contact the office so that we may evaluate you as soon as possible. B. Complications are uncommon, but please contact us if you have any signs or symptoms of: 1. wound infection (fever higher than 102.5 degrees F, redness, separation of wound, drainage, or increasing pain from the incision) 2. blood clots in legs (pain, swelling, redness and warmth in legs) 3. urinary tract infection (fever higher than 102.5 degrees F, burning upon urination or increased frequency of urination) 4. nerve problems (inability to walk on your toes or heels, numbness, loss of bowel or bladder control) 5. any other symptoms that concern you C. Please call the office at if you have any concerns or questions about your operation or recovery. D. No smoking! Smoking drastically decreases the chance of a solid fusion. E. Do not take any anti-inflammatory medications (Indocin, Advil, Motrin, Aspirin, Naprosyn, etc.) as these may inhibit the chance of a solid fusion. Tylenol is okay to take for pain. MANAGING PAIN AFTER SPINAL SURGERY 1. Narcotic medication is intended for short-term use and will be provided for surgical pain. Surgical pain usually lasts for a period of 4-6 weeks. Narcotic medication includes Percocet, Vicodin, Darvocet, Tylenol #3 or Lortab. 2. Longer-term pain is more appropriately treated with non-narcotic medication such as Tylenol ES. 3. Muscle spasm is not appropriately treated with narcotics. Muscle relaxers such as Soma, Flexeril or Skelaxin can be used along with Tylenol ES. 4. Remember that we all live with some "aches and pains". This is not unusual or uncommon after an injury or as we get older. a. Back pain is expected and may include muscle spasms for 4 to 6 weeks after surgery. The pain should gradually improve. If the pain worsens for no apparent reason, please contact the office. b. Intermittent leg pain may also be experienced and should not be concerned about unless it worsens for no apparent reason. If so, please contact the office. 5. We will provide appropriate medication within the normal guidelines of their prescribed use. We will also be very cautious and aware of potential abuse and extended duration of patients' medication needs. a. Pain medications are for your comfort and to assist with sleep and rest so that the tissue can heal. They are not provided in order to return to normal activity and should not be used through the day. To do so or worsening pain at night can result from ongoing tissue damage and development of tolerance to the prescribed medicine. 6. Please allow 2-3 days to process refills. Prescriptions will not be mailed but must be picked up at the office. FOLLOW UP VISIT: Keep your scheduled follow-up appointment. Any questions, please call the office at . Pending Studies at Discharge: No Stand-Alone Forms: My [facility] [employer], Smoking Cessation Medications and DC Order Prescriptions: New tramadol 50 mg tablet 50 mg PO Q6H PRN (Reason: pain, moderate) Qty: 30 0RF oxycodone 5 mg tablet 5 mg PO Q6H PRN (Reason: pain) Qty: 30 0RF Continued multivitamin tablet 1 tab PO DAILY Qty: 30 0RF Ozempic 2 mg/dose (8 mg/3 mL) Pen Injector 2 mg SUBCUT WK Rx Instructions: Sundays oxycodone-acetaminophen [Percocet] 5-325 mg tablet 1 tab PO Q4H PRN (Reason: pain) Qty: 16 0RF Discontinued prednisone 10 mg tablet See Rx Instructions .ROUTE .COMPLEX Qty: 39 0RF Rx Instructions: 50mg x3d, 40mg x3d, 30mg x2d, 20mg x2d, 10mg x2d Discharge Orders: Discharge Order (Routine); Ordered 05/17/24 Ordered By: Piter Durbin Admission Data Admit Date/Time: 05/15/24 12:53 Attending Provider: Piter Durbin Admit Provider: Piter Durbin Primary Care Provider: Silvia Arvizu
[2024-05-17] MEDS: ACETAMINOPHEN 500 MG TAB PO PRN (08:09)
== END 2024-05-17 13:00 | disposition home or self-care (01) | DRG 428 ==
LOC: ASU 08:51 → 3W 12:53